=== PATIENT | male | born 1970 | race Caucasian/White ===

== ENCOUNTER → 2020-01-22 | Outpatient (CLI) | payer OTHER | LOC: M PAIN 13:21 | PROVIDERS: ATTEND Nurse Practitioner Family | DX: M46.1 Sacroiliitis, not elsewhere classified (principal) ==

== ENCOUNTER → 2020-01-30 | Outpatient (CLI) | payer OTHER | LOC: M LABSMTC 08:32 | PROVIDERS: ATTEND Anesthesiology | DX: Z20.828 Contact with and (suspected) exposure to other viral communicable diseases (principal) ==

== ENCOUNTER → 2020-02-04 | Outpatient (CLI) | payer OTHER ==
[~2020-02-04] MED LIST: BUPIVACAINE HCL 0.25% 30ML VIAL As Ordered ONE; ISOVUE-M 300 61% 15ML VIAL As Ordered ONE; LIDOCAINE 1% SDV 30ML VIAL As Ordered ONE; TRIAMCINOLONE ACETONIDE SUSP 40 MG/ML VIAL (J3301) As Ordered ONE; diazePAM 5 MG TAB As Ordered ONE; oxyCODONE 5MG TAB As Ordered ONE
--- NOTE | 2020-02-18 09:57 | REP ---
FLUORO GUIDED NEEDLE PLACEMENT: The images were reviewed with Dr. Estrada. The patient has a history of pain. The portable C-ARM was provided in the OR for Dr. Jeimy Hilario for fluoroscopic guidance. One intraoperative last image hold fluoro spot film was obtained for needle placement verification for left SI joint injection. The film is on the [employer] system and is available for review. 14.6 seconds of fluoroscopy time was utilized for this procedure. CIRILO
== END ==
LOC: M PAIN 09:53
PROVIDERS: ATTEND Anesthesiology
DX: M46.1 Sacroiliitis, not elsewhere classified (principal)

== ENCOUNTER → 2020-08-05 | Outpatient (CLI) | payer OTHER ==
--- NOTE | 2020-08-09 03:00 | ECWPNPC ---
PATIENT NAME: HUMPHREY ELISE : 1970 GENDER: MALE VISIT DATE: 08/05/2020 DISCHARGE DATE: 08/05/20 1359 VISIT LOCKED DATE TIME: PHYSICIAN: DEJUAN SIERRA RESOURCE: DEJUAN SIERRA REASON FOR APPOINTMENT 1. [facility] LAST / REFERRED FOR LUMBAR/FACET INJECTION HISTORY OF PRESENT ILLNESS DEPRESSION SCREENING: PHQ-2 (2015 EDITION) LITTLE INTEREST OR PLEASURE IN DOING THINGS?NOT AT ALL FEELING DOWN, DEPRESSED, OR HOPELESS?NOT AT ALL TOTAL SCORE0 GENERAL: PATIENT IS HERE TODAY FOR FOLLOW-UP OF LOW BACK PAIN WITH HISTORY OF POSTLAMINECTOMY PAIN SYNDROME. STATES LEFT SACROILIAC JOINT BLOCK WAS HELPFUL FOR APPROXIMATELY 6-8 WEEKS POST PROCEDURE. PATIENT STATES HE'S EXPERIENCING SIGNIFICANT INCREASE IN LOW BACK PAIN WITH RADIATION INTO BILATERAL LEGS RIGHT GREATER THAN LEFT OVER THE PAST 2 MONTHS. REVIEWED MRI OF THE LS-SPINE. DISCUSSED TREATMENT OPTIONS. DENIES BOWEL OR BLADDER INCONTINENCE. DENIES SADDLE PARESTHESIAS. DENIES INJURY.-. FALL RISK SCREENING: SCREENING : NO FALLS REPORTED IN THE LAST YEAR. PAIN SCREENING: PATIENT HAS A COMPLAINT OF ACUTE OR CHRONIC PAIN :YES LOCATION OF PAIN:LOW BACK INTENSITY OF PAIN (SCALE OF 1 TO 10):6 WHAT DOES YOUR PAIN FEEL LIKE:BURNING DURATION:CONTINOUS, CONSTANT, ALL DAY PAIN IS INCREASED BY:ACTIVITIES PAIN IS DECREASED BY:OTHERS LAYING DOWN NURSING NOTE: -. PAIN CENTER INTAKE QUESTIONS: DO YOU HAVE A HISTORY OF MRSA? :NO DO YOU TAKE A BLOOD THINNERS? :NO DO YOU HAVE ANY BLEEDING DISORDERS? :NO ANY NEW NUMBNESS OR WEAKNESS IN YOUR LEGS OR ARMS? :YES NUMBESS IN BOTH LEG GOES INTO TOES ANY PACEMAKER,DEFIBRILLATOR, OR DORSAL COLUMN STIMULATOR? :NO DO YOU HAVE ANY RASHES OR OPEN SORES? :NO ARE YOU ALLERGIC TO IV DYE? :NO ARE YOU DIABETIC? :YES ANY NEW PROBLEMS WITH YOUR MEDICATIONS? :NO HAVE YOU RECEIVED A VACCINE IN THE PAST 30 DAYS? :NO DO YOU PLAN TO RECEIVE A VACCINE IN THE NEXT 21 DAYS? :NO DO YOU NEED ANY PRESCRIPTION? :NO DO YOU TAKE ANY IMMUNOSUPPRESSIVE MEDICATIONS? :NO DO YOU HAVE ANY KIDNEY OR LIVER DISEASE? :NO IS THERE A CHANCE YOU COULD BE ? :NO ARE YOU BREAST FEEDING? :NO CURRENT MEDICATIONS TAKING CYCLOBENZAPRINE HCL 10 MG TABLET 1 TABLET AT BEDTIME NEEDED ORALLY ONCE A DAY TAKING ESCITALOPRAM OXALATE 20 MG TABLET 1 TABLET ORALLY ONCE A DAY TAKING GABAPENTIN 600 MG TABLET 1 TABLET ORALLY ONCE A DAY TAKING LOSARTAN POTASSIUM 100 MG TABLET 1 TABLET ORALLY ONCE A DAY TAKING TRULICITY 1.5 MG/0.5ML SOLUTION PEN-INJECTOR DIRECTED SUBCUTANEOUS , NOTES: 3X TIMES DAY NOT-TAKING CHLORTHALIDONE 25 MG TABLET 1 TABLET IN THE MORNING WITH FOOD ORALLY ONCE A DAY NOT-TAKING NAPROXEN SODIUM 220 MG TABLET 1 TABLET WITH FOOD OR MILK NEEDED ORALLY EVERY 12 HRS MEDICATION LIST REVIEWED AND RECONCILED WITH THE PATIENT PAST MEDICAL HISTORY ARTHRITIS LOW BACK STRAIN TYPE 2 DIABETES MELLITUS ESSENTIAL HYPERTENSION PURE HYPERCHOLESTEROLEMIA ALLERGIES NKDA NKFA NKEA FAMILY HISTORY SIBLINGS: ALIVE, DIAGNOSED WITH HYPERTENSION, DIABETES SOCIAL HISTORY GENERAL: TOBACCO USE ARE YOU A:CURRENT SMOKER ARE YOU INTERESTED IN QUITTING?NOT READY TO QUIT PATIENT COUNSELED ON THE DANGERS OF TOBACCO USE AND URGED TO QUIT:08/05/2020 LATEX QUESTIONNAIRE LATEX ALLERGY : HAVE YOU EVER DEVELOPED ANY TYPE OF REACTION AFTER HANDLING LATEX PRODUCTS SUCH RUBBER GLOVES, CONDOMS, DIAPHRAGMS, BALLOONS, SOCKS, OR UNDERWEAR?NO LATEX ALLERGY : HAVE YOU EVER DEVELOPED ANY TYPE OF REACTION DURING OR AFTER DENTAL APPOINTMENT, VAGINAL/RECTAL EXAMINATION, SURGICAL PROCEDURE, OR ANY OTHER EXPOSURE?NO LATEX RISK : HAVE YOU EVER HAD ANY DIFFICULTY BREATHING OR HIVES AFTER EATING OR HANDLING ANY FRUITS, OR VEGETABLES; SUCH KIWI, BANANAS, STONE FRUITS, OR CHESTNUTSNO LATEX RISK : DO YOU HAVE A PREVIOUS PERSONAL HISTORY OF MORE THAN NINE SURGERIES, SPINA BIFIDA, OR REPEATED CATHERIZATIONS? NO LATEX RISK : ARE YOU FREQUENTLY EXPOSED TO LATEX PRODUCTS IN YOUR OCCUPATION?NO DATE ASKED : 08/05/2020 RECREATIONAL DRUG USE DRUG USE?NO LANGUAGE LANGUAGES SPOKEN:TAMAZIGHT LEARNING BARRIERS / SPECIAL NEEDS CHANGE FROM LAST VISIT?YES BARRIERS TO LEARNING?NO HEARING IMPAIRED?NO VISION IMPAIRED?YES :CORRECTIVE LENSES COGNITIVELY IMPAIRED?NO READINESS TO LEARN?YES LEARNING PREFERENCES?NO LEARNING CAPABILITIES PRESENT?YES EMOTIONAL BARRIERS?NO SPECIAL DEVICES?NO SWITCH MAKER NEEDED?NO DOMESTIC VIOLENCE DO YOU FEEL SAFE IN YOUR ENVIRONMENT?YES REVIEW OF SYSTEMS CONSTITUTIONAL: ANY RECENT FEVER NO . CHILLS NO . WEIGHT CHANGE OF UNKNOWN REASONS NO . GASTROENTEROLOGY: NEW UNEXPLAINABLE CHANGES IN BOWEL CONTROL NO . CONSTIPATION NO . GENITOURINARY: ANY NEW CHANGE IN BLADDER CONTROL? NO . NEUROLOGY: NEW ONSET DIZZINESS OR NEUROLOGICAL CHANGES NOT MENTIONED NO . NEW NUMBNESS OR PAIN PATTERNS NOT MENTIONED AND PERTINENT TO TODAY'S VISIT NO . CARDIOLOGY: NEW CHEST PRESSURE NO . PATIENT DENIES NO . RESPIRATORY: UNEXPLAINABLE COUGH NO . NEW SHORTNESS OF BREATH NO . VITAL SIGNS WT 242 LBS, HT 6'0, BMI 32.82 INDEX, BP 131/80 MM HG, HR 91 /MIN, RR 18 /MIN, TEMP 92.7 F, OXYGEN SAT % 96%, SAFE IN ENV? (Y/N) YEST.CHILANGO RODRÍGUEZ. EXAMINATION GENERAL EXAMINATION: GENERAL AWAKE,ALERT ,PLEASANT . PSYCH AFFECT NORMAL . LUNGS: LUNG WILLS ARE CLEAR TO AUSCULTATION BILATERALLY. GOOD MOVEMENT OF AIR . HEART: S1, S2 IN A REGULAR RATE AND RHYTHM. NO SIGNIFICANT MURMURS, RUBS OR GALLOPS NOTED . LUMBAR: PALPATION: + FOR PAIN OVER L/S SPINE. + FOR PAIN OVER L/S PARASPINALS SLE: POSITIVE OVER LEFT AND RIGHT LEG AT 45 DEGREES. DIAGNOSTIC TESTS REVIEWED MRI L/S SPINE 2019. 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) TREATMENT POST LAMINECTOMY SYNDROME MEDICATION: VALIUM TAB 10MG ORALLY (DIAZEPAM) (ORDERED FOR 08/12/2020) MEDICATION: OXYCODONE HCL TAB 10MG ORALLY (ORDERED FOR 08/12/2020) NOTES: ISTOP REGISTRY REVIEWED AND DEMONSTRATES COMPLLIANCE. [facility] NARCOTIC AGREEMENT WAS REVIEWED AND SIGNED TODAY BY THE PATIENT. SEE ATTACHED DOCUMENT FOR FULL DETAILS; SPECIFIC ISSUES WERE REVIEWED: 1) KEEP PAIN MEDS IN THEIR ORIGINAL BOTTLES AND ANY WEEKLY PLANNERS ARE TO BE BROUGHT TO THE PAIN CENTER AT EVERY VISIT. 2) THE PATIENT IS NOT TO INCREASE DOSING OR TIMING OF THEIR PAIN MEDICATION WITHOUT SPECIFIC DIRECTION OF THEIR PAIN CENTERPROVIDER (NOT ER OR OTHER PROVIDERS). 3) ALL PAIN MEDS ARE TO BE KEPT SECURED, IN A LOCKED BOX. 4) NO PAIN MEDS ARE TO BE SHARED WITH ANY OTHER PERSON FOR ANY REASON. 5) NO PAIN MEDS MAY BE TAKEN FROM ANY FRIENDS OR RELATIVES FOR ANY REASON 6) NO MEDS OR SUBSTANCES WHICH ARE NOT LEGAL ARE TO BE USED- NO MARIJUANA, NO COCAINE, AMPHETAMINES, HEROIN, OR OTHERS ARE EVER TO BE USED. 7)URINE TESTING IS DONE TO ACCOUNT FOR MEDS AND SUBSTANCES BEING TAKEN AND WILL BE DONE RANDOMLY. , RISKS OF NARCOTIC/OPIOD MEDICATIONS INCLUDES BUT IS NOT LIMITED TO RISK OF DEPENDANCE/DEVELOPMENT OF ADDICTION, MOOD DISTURBANCE AND DEPRESSION, OSTEOPOROSIS, HORMONAL AND LABIDAL CHANGES, RESPIRATORY DEPRESSION AND . PATIENT IS ADVISED NOT TO DRIVE OR DRINK ALCOHOL WHILE ON THESE MEDICATIONS. OTHERS START GABAPENTIN CAPSULE, 300 MG, 1 CAPSULE, ORALLY, 3X DAILY, 30 DAY(S), 90, REFILLS 2 START PERCOCET TABLET, 10-325 MG, 1 TABLET NEEDED, ORALLY, AT NIGHT PRN FOR SEVERE PAIN MDD1, 30 DAYS, 30 NOTES: CAUDAL EPIDURAL STEROID INJECTION. PROCEDURE CODES FA211 ESTABILISHED PATIENT [facility] CHARGE DISPOSITION & COMMUNICATION FOLLOW UP POST PROCEDURE (REASON: CAUDAL EPIDURAL STEROID INJECTION) ELECTRONICALLY SIGNED BY ART LINDSAY ON 08/08/2020 AT 08:42 AM EDT DISCLAIMER : THIS IS A VISIT SUMMARY EXTRACTED FROM THE [employer] CHART. IT IS NOT A COPY OF THE [employer] PROGRESS NOTE. CIRILO
== END ==
LOC: M PAIN 13:00
PROVIDERS: ATTEND Nurse Practitioner Family
DX: M96.1 Postlaminectomy syndrome, not elsewhere classified (principal); E11.9 Type 2 diabetes mellitus without complications; F17.200 Nicotine dependence, unspecified, uncomplicated; Z79.899 Other long term (current) drug therapy

== ENCOUNTER → 2020-08-12 | Outpatient (CLI) | payer OTHER | LOC: M LABSMTC 14:21 | PROVIDERS: ATTEND Anesthesiology | DX: Z20.822 Contact with and (suspected) exposure to COVID-19 (principal) ==

== ENCOUNTER → 2020-08-17 | Outpatient (CLI) | payer OTHER ==
[~2020-08-17] MED LIST changes: -BUPIVACAINE HCL 0.25% 30ML VIAL As Ordered ONE; -TRIAMCINOLONE ACETONIDE SUSP 40 MG/ML VIAL (J3301) As Ordered ONE; -diazePAM 5 MG TAB As Ordered ONE; +diazePAM 5MG TABLET As Ordered ONE; +methylPREDNISolone SUSP 40MG/ML 1ML VIAL (DEPO MEDROL) As Ordered ONE
--- NOTE | 2020-08-17 17:26 | REP ---
INDICATION: CAUDAL EPIDURAL STEROID INJECTION. COMPARISON: None. TECHNIQUE: Multiple C-arm views sacrum and coccyx. FINDINGS: Needle is seen posteriorly in the sacrococcygeal region. A small amount of contrast is injected. IMPRESSION: 14 seconds fluoroscopy time utilized. <Electronically signed by Gilson Chu > 08/17/20 2019
--- NOTE | 2020-08-19 00:01 | ECWPNPC ---
PATIENT NAME: HUMPHREY ELISE : 1970 GENDER: MALE VISIT DATE: 08/17/2020 DISCHARGE DATE: 08/17/20 1256 VISIT LOCKED DATE TIME: PHYSICIAN: YAN ANTONIO MD RESOURCE: YAN ANTONIO MD REASON FOR APPOINTMENT 1. CAUDAL EPIDURAL STEROID INJECTION HISTORY OF PRESENT ILLNESS GENERAL: -. FALL RISK SCREENING: SCREENING : NO FALLS REPORTED IN THE LAST YEAR. PAIN SCREENING: PATIENT HAS A COMPLAINT OF ACUTE OR CHRONIC PAIN :YES LOCATION OF PAIN:LOW BACK, LEFT HIP, RIGHT HIP, LEG(S) INTENSITY OF PAIN (SCALE OF 1 TO 10):9 WHAT DOES YOUR PAIN FEEL LIKE: "JABBING, SHARP" DURATION:CONSTANT, AWAKENS FROM SLEEP PAIN IS INCREASED BY:ACTIVITIES, PROLONGED STANDING PAIN IS DECREASED BY:USE OF PAIN MEDICATIONS, OTHERS LAYING DOWN TREATMENT/MEDICATIONS USED TO MANAGE PAIN:OPIOIDS PLAN/GOALS/TREATMENT/INTERVENTION/FOLLOW UP:SEE PLAN NURSING NOTE: - -. PAIN CENTER INTAKE QUESTIONS: DO YOU HAVE A HISTORY OF MRSA? :NO DO YOU TAKE A BLOOD THINNERS? :NO DO YOU HAVE ANY BLEEDING DISORDERS? :NO ANY NEW NUMBNESS OR WEAKNESS IN YOUR LEGS OR ARMS? :YES NUMBESS IN BOTH LEG GOES INTO TOES ANY PACEMAKER,DEFIBRILLATOR, OR DORSAL COLUMN STIMULATOR? :NO DO YOU HAVE ANY RASHES OR OPEN SORES? :NO ARE YOU ALLERGIC TO IV DYE? :NO ARE YOU DIABETIC? :YES FSBS 89 ANY NEW PROBLEMS WITH YOUR MEDICATIONS? :NO HAVE YOU RECEIVED A VACCINE IN THE PAST 30 DAYS? :NO DO YOU PLAN TO RECEIVE A VACCINE IN THE NEXT 21 DAYS? :NO DO YOU TAKE ANY IMMUNOSUPPRESSIVE MEDICATIONS? :NO ANY HISTORY OF SEIZURES? :NO ANY HISTORY OF CARDIAC ISSUES OR EVENTS? :NO DO YOU HAVE ANY KIDNEY OR LIVER DISEASE? :NO DO YOU HAVE SLEEP APNEA? :YES DO YOU WEAR A CPAP?NO ANY RECENT HEAD INJURY? :NO DO YOU HAVE ANY NEW INFECTIONS? :NO IS THERE A CHANCE YOU COULD BE ? :N/A ARE YOU BREAST FEEDING? :N/A WHEN DID YOU LAST EAT? : 08/16/2020 1930 WHEN DID YOU LAST DRINK? : 08/17/2020 0730 WHAT DID YOU LAST DRINK? : BETSY NAME OF PERSON DRIVING YOU HOME? : GABRIELA DO YOU HAVE ANY OTHER QUESTIONS OR CONCERNS? : NO CURRENT MEDICATIONS TAKING CYCLOBENZAPRINE HCL 10 MG TABLET 1 TABLET AT BEDTIME NEEDED ORALLY ONCE A DAY TAKING ESCITALOPRAM OXALATE 20 MG TABLET 1 TABLET ORALLY ONCE A DAY TAKING GABAPENTIN 600 MG TABLET 1 TABLET ORALLY ONCE A DAY, NOTES: 08/17/2020 0730 TAKING TRULICITY 1.5 MG/0.5ML SOLUTION PEN-INJECTOR DIRECTED SUBCUTANEOUS ONCE A WEEK TAKING GABAPENTIN 300 MG CAPSULE 1 CAPSULE ORALLY 3X DAILY TAKING PERCOCET 10-325 MG TABLET 1 TABLET NEEDED ORALLY AT NIGHT PRN FOR SEVERE PAIN MDD1 NOT-TAKING CHLORTHALIDONE 25 MG TABLET 1 TABLET IN THE MORNING WITH FOOD ORALLY ONCE A DAY NOT-TAKING NAPROXEN SODIUM 220 MG TABLET 1 TABLET WITH FOOD OR MILK NEEDED ORALLY EVERY 12 HRS NOT-TAKING LOSARTAN POTASSIUM 100 MG TABLET 1 TABLET ORALLY ONCE A DAY MEDICATION LIST REVIEWED AND RECONCILED WITH THE PATIENT PAST MEDICAL HISTORY ARTHRITIS LOW BACK STRAIN TYPE 2 DIABETES MELLITUS ESSENTIAL HYPERTENSION PURE HYPERCHOLESTEROLEMIA ALLERGIES NKDA NKFA NKEA SOCIAL HISTORY GENERAL: TOBACCO USE ARE YOU A:CURRENT SMOKER ARE YOU INTERESTED IN QUITTING?NOT READY TO QUIT PATIENT COUNSELED ON THE DANGERS OF TOBACCO USE AND URGED TO QUIT:08/16/2020 VAPORNO E-CIGARETTENO LATEX QUESTIONNAIRE LATEX ALLERGY : HAVE YOU EVER DEVELOPED ANY TYPE OF REACTION AFTER HANDLING LATEX PRODUCTS SUCH RUBBER GLOVES, CONDOMS, DIAPHRAGMS, BALLOONS, SOCKS, OR UNDERWEAR?NO LATEX ALLERGY : HAVE YOU EVER DEVELOPED ANY TYPE OF REACTION DURING OR AFTER DENTAL APPOINTMENT, VAGINAL/RECTAL EXAMINATION, SURGICAL PROCEDURE, OR ANY OTHER EXPOSURE?NO LATEX RISK : HAVE YOU EVER HAD ANY DIFFICULTY BREATHING OR HIVES AFTER EATING OR HANDLING ANY FRUITS, OR VEGETABLES; SUCH KIWI, BANANAS, STONE FRUITS, OR CHESTNUTSNO LATEX RISK : DO YOU HAVE A PREVIOUS PERSONAL HISTORY OF MORE THAN NINE SURGERIES, SPINA BIFIDA, OR REPEATED CATHERIZATIONS? NO LATEX RISK : ARE YOU FREQUENTLY EXPOSED TO LATEX PRODUCTS IN YOUR OCCUPATION?NO DATE ASKED : 08/16/2020 ALCOHOL USE: ORLANDO CHAPA 08/16/2020 4:13:47 PM > , YES ONCE IN A GREAT GREAT WHILE.. RECREATIONAL DRUG USE DRUG USE?NO LANGUAGE LANGUAGES SPOKEN:ICELANDIC LEARNING BARRIERS / SPECIAL NEEDS CHANGE FROM LAST VISIT?YES BARRIERS TO LEARNING?NO HEARING IMPAIRED?NO VISION IMPAIRED?YES :CORRECTIVE LENSES COGNITIVELY IMPAIRED?NO READINESS TO LEARN?YES LEARNING PREFERENCES?NO LEARNING CAPABILITIES PRESENT?YES EMOTIONAL BARRIERS?NO SPECIAL DEVICES?NO CHURCH BUSINESS ADMINISTRATOR NEEDED?NO DOMESTIC VIOLENCE DO YOU FEEL SAFE IN YOUR ENVIRONMENT?YES OCCUPATION: [employer]. VITAL SIGNS WT 241.6 LBS, HT 6'0, BMI 32.76 INDEX, BP 140/81 MM HG, HR 87 /MIN, RR 18 /MIN, TEMP 95.3 F, OXYGEN SAT % 96%, BLOOD GLUCOSE LEVEL 89, SAFE IN ENV? (Y/N) YES, NA INITIALS CT 11:23, REVIEWED BY: Jason KONG RN. EXAMINATION GENERAL EXAMINATION: A HISTORY AND PHYSICAL EXAM ON THE PATIENT WAS DONE ON 08/05/2020 (DATE OF ORIGINAL ASSESSMENT) IN PREPARATION OF SURGERY/PROCEDURE. I HAVE NOW REASSESSED THIS PATIENT'S HEALTH STATUS AND PERFORMED AN UPDATED EXAM TODAY. ALL CHANGES IN THE PATIENT'S HISTORY, PHYSICAL EXAM, PRE-EXISTING CONDITONS, AND INDICATIONS/CONTRAINDICATIONS TO THE PLANNED PROCEDURE AND ANESTHESIA ARE DOCUMENTED AND EVALUATED BELOW. I ATTEST TO THE ADEQUACY AND APPROPRIATENESS OF MY ASSESSMENT, AND CONFIRM THE NECESSITY FOR THE PLANNED PROCEDURE. THE PATIENT IS ALERT, ORIENTED TIMES THREE AND COOPERATIVE. LUNGS ARE CLEAR TO AUSCULTATION. HEART SHOWS REGULAR RHYTHM, NO MURMURS AND NO GALLOPS. 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) TREATMENT POST LAMINECTOMY SYNDROME [facility] FLUORO GUIDE SPINE INJECTION (PAIN)[id number] SALINE CHITRA [place] 08/17/2020 11:52:21 AM > #22 SL STARTED X 2 ND ATTEMPT BY THIS LASER OPERATOR IN RIGHT HAND. SITE ASYMPTOMATIC, FLUSHES WELL. PATIENT TOLERATED WELL COMPLETION OF PROCEDURAL VISIT WHEN MEETS CRITERIACHITRA DESIR 08/17/2020 12:59:50 PM > 1257 CRITERIS MET MEDICATION: VALIUM TAB 10MG ORALLY (DIAZEPAM)JESS EDUARDO 08/17/2020 11:38:55 AM > VERIFIED CHITRA DESIR 08/17/2020 11:40:57 AM > ADMINISTERED MEDICATION: OXYCODONE HCL TAB 10MG ORALLYJESS EDUARDO 08/17/2020 11:33:46 AM > VERIFIED CHITRA DESIR 08/17/2020 11:41:13 AM > ADMINISTERED OTHERS NOTES: 08/16/20 1624 PAT COMPLETED.Doug CHAPA RN BSN. PROCEDURES PAIN NURSING RECORD PROCEDURE IN ROOM 1205, PHYSICIAN IN ROOM 1218, START 1225, FINISH 1231, PHYSICIAN OUT OF ROOM 1234, OUT OF ROOM 1239, ECG NORMAL SINUS, PATIENT SHIELDED YES, SAFETY STRAP YES, PREP BETADINE Stephanie KONG RN, DRESSING TEGADERM DR. ANTONIO LOC: CHITRA DESIR 08/17/2020 12:17:00 PM > , 1. ALERT, ORIENTED RESP: CHITRA DESIR 08/17/2020 12:17:03 PM > , 1. REGULAR, NO DYSPNEA COLOR: CHITRA DESIR 08/17/2020 12:17:07 PM > , 1. PINK SKIN: CHITRA DESIR 08/17/2020 12:17:10 PM > , 1. WARM, DRY POSITION: CHITRA DESIR 08/17/2020 12:17:14 PM > , 1. PRONE VITALS: CHITRA DESIR 08/17/2020 12:17:19 PM > 148/88-79-18-94% , CHITRA DESIR 08/17/2020 12:27:21 PM > 137/77-77-18-92% 08/17/2020 1245> 141/86-77-18-94% NOTES Stephanie KONG RN COMPLETION OF PROCEDURE APPOINTMENT: POST PAIN 3 RIGHT LOWER BACK, DRESSING SITE DRY AND INTACT BILATERAL LOWER BACK, IV DISCONTINUED, SITE CLEAR, CATHETER INTACT DRY STERILE 2 X 2 APPLIED WITH PAPER TAPE TO SITE, GAIT STEADY, TEACHING COMPLETED, PATIENT ACKNOWLEDGES UNDERSTANDING YES PATIENT VERBALIZES UNDERSTANDING OF POST PROCEDURE INSTRUCTIONS REVIEWED, PROCEDURE APPOINTMENT COMPLETED AT 1257 BY: Stephanie KONG RN PN CAUDAL EPIDURALS PRE PROCEDURE DIAGNOSIS LUMBAR POST LAMINECTOMY PAIN SYNDROME POST PROCEDURE DIAGNOSIS LUMBAR POST LAMINECTOMY PAIN SYNDROME PROCEDURE CAUDAL EPIDURAL STEROID INJECTION SURGEON DR. YAN NATONIO DIRECTOR OF USER EXPERIENCE NONE ANESTHESIA LOCAL PRE PROCEDURE NOTE THE PATIENT HAS HISTORY OF CHRONIC LOW BACK PAIN. I EVALUATED THE PATIENT AND REVIEWED THE CHART. I WENT OVER THE RISKS, ALTERNATIVES, AND BENEFITS ASSOCIATED WITH THIS PROCEDURE. THE PATIENT WOULD LIKE TO PROCEED AND GIVE CONSENT TO PERFORMED THE PROCEDURE. THE PATIENT DENIES UNEXPLAINABLE WEIGHT LOSS, FEVER, CHILLS, OR NEW CHANGES IN URINARY OR BOWEL CONTROL. THE PATIENT IS COVID-19 NEGATIVE DESCRIPTION OF PROCEDURE THE PATIENT WAS BROUGHT TO THE PROCEDURE ROOM AND PLACED IN THE PRONE POSITION. THE LUMBOSACRAL AREA WAS CLEANED WITH BETADINE SOLUTION AND DRAPED ASEPTICALLY. THE PROCEDURE WAS DONE UNDER STERILE CONDITIONS. A TIMEOUT WAS PERFORMED WHERE THE CONSENTED SITE WAS VERIFIED WITH EVERYONE IN THE ROOM. UNDER FLUOROSCOPIC GUIDANCE, THE TARGET POINT WAS SELECTED AT THE EPIDURAL SPACE BELOW THE SACROCOCCYGEAL LIGAMENT. I CONFIRMED AGAIN THE SITE OF TARGET. LIDOCAINE 0.5% WAS USE TO NUMB THE SKIN AND THE SUBCUTANEOUS TISSUE BELOW IT. SPINAL NEEDLE, 22-GAUGE 3.5 INCH, WAS ADVANCED UNDER FLUOROSCOPIC GUIDANCE AND FOLLOWING PATIENT FEEDBACK UNTIL THE EPIDURAL SPACE WAS REACHED BY THE LOSS OF RESISTANCE TECHNIQUE. ISOVUE M DYE 30%, 0.25 ML, WAS INJECTED SHOWING ADEQUATE SPREAD OF THE DYE. THEN, A SOLUTION OF 6 ML OF NORMAL SALINE WITH DEPO-MEDROL 40 MG WAS INJECTED SLOWLY FOLLOWING THE PATIENT FEEDBACK. THERE WAS NO EVIDENCE OF BLOOD, PARESTHESIA OR CEREBROSPINAL FLUID DURING THE PROCEDURE. THE PATIENT WAS SENT TO THE RECOVERY ROOM. THE PATIENT WAS MOVING THE EXTREMITIES AND DOING WELL. THERE WAS NO COMPLICATION DURING THE PROCEDURE. ESTIMATED BLOOD LOSS LESS THAN 5 ML. FLUOROSCOPY TIME WAS 13 SECONDS POST PROCEDURE NOTE DEPENDING ON THE RESULTS, CONSIDER A RIGHT TRANSFORAMINAL EPIDURAL STEROID INJECTION L4-L5, L5-S1. THE PATIENT WILL BE SEEN IN A FOLLOW UP IN THE NEXT FEW WEEKS. I AM LOOKING FOR LONG LASTING RELIEF FOR THE PATIENT WITH THIS INTERVENTION. INSTRUCTIONS WERE GIVEN, QUESTIONS WERE ANSWERED, AND THE PATIENT EXPRESSED UNDERSTANDING AND AGREES WITH THE PLAN. I, WINSOME PEMBERTON, DOCUMENTED THE ABOVE INFORMATION ACTING A SCRIBE FOR DR. ANTONIO. I HAVE REVIEWED THE ABOVE DOCUMENT, WRITTEN BY WINSOME PEMBERTON, PHYSICAL AERODYNAMICIST, AND I VERIFY THAT IT IS ACCURATE PROCEDURE CODES 33710 LUMBAR/SACRAL W/ IMAGING DISPOSITION & COMMUNICATION FOLLOW UP FOLLOW UP WITH HOST AND HOSTESS (REASON: POST CAUDAL EPIDURAL STEROID INJECTION ) ELECTRONICALLY SIGNED BY YAN ANTONIO MD, MD ON 08/18/2020 AT 01:49 PM EDT DISCLAIMER : THIS IS A VISIT SUMMARY EXTRACTED FROM THE [employer] CHART. IT IS NOT A COPY OF THE [employer] PROGRESS NOTE. CIRILO
== END ==
LOC: M PAIN 11:00
PROVIDERS: ATTEND Anesthesiology
DX: M96.1 Postlaminectomy syndrome, not elsewhere classified (principal); E11.9 Type 2 diabetes mellitus without complications; G47.30 Sleep apnea, unspecified; F17.200 Nicotine dependence, unspecified, uncomplicated; Z79.899 Other long term (current) drug therapy
CPT/HCPCS: 62323; J1030; Q9967

== ENCOUNTER → 2020-08-31 | Outpatient (CLI) | payer OTHER ==
--- NOTE | 2020-09-02 01:36 | ECWPNPC ---
PATIENT NAME: HUMPHREY ELISE : 1970 GENDER: MALE VISIT DATE: 08/31/2020 DISCHARGE DATE: 08/31/20 1525 VISIT LOCKED DATE TIME: PHYSICIAN: DEJUAN SIERRA RESOURCE: DEJUAN SIERRA REASON FOR APPOINTMENT 1. POST CAUDAL EPIDURAL STEROID INJECTION HISTORY OF PRESENT ILLNESS GENERAL: HERE FOR POST PROCEDURE FOLLOW-UP. HAD CAUDAL EPIDURAL STEROID INJECTION AT HIS LAST VISIT. REPORTING MARKED REDUCTION IN LOW BACK PAIN AND RIGHT LEG PAIN. CHIEF COMPLAINT IS LEFT-SIDED LOW BACK, BUTTOCK AND LEG PAIN. REVIEWED MRI OF THE LS-SPINE. DISCUSSED TRANSFORAMINAL STEROID INJECTION. INCREASED RISKS WITH THIS APPROACH WERE REVIEWED. PATIENT WOULD LIKE TO PROCEED. FINDS CURRENT CHRONIC PAIN MEDICATION HELPFUL AT REDUCING HIS PAIN AND REPORTS MARKED IMPROVEMENT IN HIS SLEEP SINCE STARTING BOTH PERCOCET AND GABAPENTIN. DENIES ADVERSE SIDE EFFECTS WITH MEDICATION. -. FALL RISK SCREENING: SCREENING : NO FALLS REPORTED IN THE LAST YEAR. PAIN SCREENING: PATIENT HAS A COMPLAINT OF ACUTE OR CHRONIC PAIN :YES LOCATION OF PAIN:LOW BACK, LEG(S) INTENSITY OF PAIN (SCALE OF 1 TO 10):5 WHAT DOES YOUR PAIN FEEL LIKE:SHARP DURATION:CONTINOUS, CONSTANT, ALL DAY PAIN IS INCREASED BY:ACTIVITIES PAIN IS DECREASED BY:USE OF PAIN MEDICATIONS NURSING NOTE: -. PAIN CENTER INTAKE QUESTIONS: DO YOU HAVE A HISTORY OF MRSA? :NO DO YOU TAKE A BLOOD THINNERS? :NO DO YOU HAVE ANY BLEEDING DISORDERS? :NO ANY NEW NUMBNESS OR WEAKNESS IN YOUR LEGS OR ARMS? :YES NUMBESS IN BOTH LEG GOES INTO TOES ANY PACEMAKER,DEFIBRILLATOR, OR DORSAL COLUMN STIMULATOR? :NO DO YOU HAVE ANY RASHES OR OPEN SORES? :NO ARE YOU ALLERGIC TO IV DYE? :NO ARE YOU DIABETIC? :YES ANY NEW PROBLEMS WITH YOUR MEDICATIONS? :NO HAVE YOU RECEIVED A VACCINE IN THE PAST 30 DAYS? :NO DO YOU PLAN TO RECEIVE A VACCINE IN THE NEXT 21 DAYS? :NO DO YOU NEED ANY PRESCRIPTION? :NO DO YOU TAKE ANY IMMUNOSUPPRESSIVE MEDICATIONS? :NO DO YOU HAVE ANY KIDNEY OR LIVER DISEASE? :NO IS THERE A CHANCE YOU COULD BE ? :NO ARE YOU BREAST FEEDING? :NO CURRENT MEDICATIONS TAKING CYCLOBENZAPRINE HCL 10 MG TABLET 1 TABLET AT BEDTIME NEEDED ORALLY ONCE A DAY TAKING ESCITALOPRAM OXALATE 20 MG TABLET 1 TABLET ORALLY ONCE A DAY TAKING TRULICITY 1.5 MG/0.5ML SOLUTION PEN-INJECTOR DIRECTED SUBCUTANEOUS ONCE A WEEK TAKING GABAPENTIN 300 MG CAPSULE 1 CAPSULE ORALLY 3X DAILY TAKING PERCOCET 10-325 MG TABLET 1 TABLET NEEDED ORALLY AT NIGHT PRN FOR SEVERE PAIN MDD1 NOT-TAKING CHLORTHALIDONE 25 MG TABLET 1 TABLET IN THE MORNING WITH FOOD ORALLY ONCE A DAY NOT-TAKING NAPROXEN SODIUM 220 MG TABLET 1 TABLET WITH FOOD OR MILK NEEDED ORALLY EVERY 12 HRS NOT-TAKING LOSARTAN POTASSIUM 100 MG TABLET 1 TABLET ORALLY ONCE A DAY NOT-TAKING GABAPENTIN 600 MG TABLET 1 TABLET ORALLY ONCE A DAY MEDICATION LIST REVIEWED AND RECONCILED WITH THE PATIENT PAST MEDICAL HISTORY ARTHRITIS LOW BACK STRAIN TYPE 2 DIABETES MELLITUS ESSENTIAL HYPERTENSION PURE HYPERCHOLESTEROLEMIA ALLERGIES NKDA NKFA NKEA SURGICAL HISTORY FALL SPRAIN RIGHT SHOULDER 08/2020 SOCIAL HISTORY GENERAL: TOBACCO USE ARE YOU A:CURRENT SMOKER ARE YOU INTERESTED IN QUITTING?NOT READY TO QUIT PATIENT COUNSELED ON THE DANGERS OF TOBACCO USE AND URGED TO QUIT:08/16/2020 VAPORNO E-CIGARETTENO LATEX QUESTIONNAIRE LATEX ALLERGY : HAVE YOU EVER DEVELOPED ANY TYPE OF REACTION AFTER HANDLING LATEX PRODUCTS SUCH RUBBER GLOVES, CONDOMS, DIAPHRAGMS, BALLOONS, SOCKS, OR UNDERWEAR?NO LATEX ALLERGY : HAVE YOU EVER DEVELOPED ANY TYPE OF REACTION DURING OR AFTER DENTAL APPOINTMENT, VAGINAL/RECTAL EXAMINATION, SURGICAL PROCEDURE, OR ANY OTHER EXPOSURE?NO LATEX RISK : HAVE YOU EVER HAD ANY DIFFICULTY BREATHING OR HIVES AFTER EATING OR HANDLING ANY FRUITS, OR VEGETABLES; SUCH KIWI, BANANAS, STONE FRUITS, OR CHESTNUTSNO LATEX RISK : DO YOU HAVE A PREVIOUS PERSONAL HISTORY OF MORE THAN NINE SURGERIES, SPINA BIFIDA, OR REPEATED CATHERIZATIONS? NO LATEX RISK : ARE YOU FREQUENTLY EXPOSED TO LATEX PRODUCTS IN YOUR OCCUPATION?NO DATE ASKED : 08/31/2020 ALCOHOL USE: YES ONCE IN A GREAT GREAT WHILE.. RECREATIONAL DRUG USE DRUG USE?NO LANGUAGE LANGUAGES SPOKEN:JORDANIAN LEARNING BARRIERS / SPECIAL NEEDS CHANGE FROM LAST VISIT?YES BARRIERS TO LEARNING?NO HEARING IMPAIRED?NO VISION IMPAIRED?YES :CORRECTIVE LENSES COGNITIVELY IMPAIRED?NO READINESS TO LEARN?YES LEARNING PREFERENCES?NO LEARNING CAPABILITIES PRESENT?YES EMOTIONAL BARRIERS?NO SPECIAL DEVICES?NO FINISH PHOTOGRAPHER NEEDED?NO DOMESTIC VIOLENCE DO YOU FEEL SAFE IN YOUR ENVIRONMENT?YES OCCUPATION: [employer]. REVIEW OF SYSTEMS CONSTITUTIONAL: ANY RECENT FEVER NO . CHILLS NO . WEIGHT CHANGE OF UNKNOWN REASONS NO . GASTROENTEROLOGY: NEW UNEXPLAINABLE CHANGES IN BOWEL CONTROL NO . CONSTIPATION NO . GENITOURINARY: ANY NEW CHANGE IN BLADDER CONTROL? NO . NEUROLOGY: NEW ONSET DIZZINESS OR NEUROLOGICAL CHANGES NOT MENTIONED NO . NEW NUMBNESS OR PAIN PATTERNS NOT MENTIONED AND PERTINENT TO TODAY'S VISIT NO . CARDIOLOGY: NEW CHEST PRESSURE NO . PATIENT DENIES NO . RESPIRATORY: UNEXPLAINABLE COUGH NO . NEW SHORTNESS OF BREATH NO . VITAL SIGNS WT 241.8 LBS, HT 6'0, BMI 32.79 INDEX, BP 147/83 MM HG, HR 66 /MIN, RR 18 /MIN, TEMP 97.6 F, OXYGEN SAT % 97%, SAFE IN ENV? (Y/N) YES, NA INITIALS SC 14:56T.CHILANGO RODRÍGUEZ. EXAMINATION GENERAL EXAMINATION: GENERAL AWAKE,ALERT ,PLEASANT . PSYCH AFFECT NORMAL . LUNGS: LUNG WILLS ARE CLEAR TO AUSCULTATION BILATERALLY. GOOD MOVEMENT OF AIR . HEART: S1, S2 IN A REGULAR RATE AND RHYTHM. NO SIGNIFICANT MURMURS, RUBS OR GALLOPS NOTED . LUMBAR:PALPATION: + FOR PAIN OVER L/S SPINE. + FOR PAIN OVER L/S PARASPINALS SLE: POSITIVE OVER LEFT LEG AT 45 DEGREES. DIAGNOSTIC TESTS REVIEWED MRI L/S SPINE 2019. 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) CHRONIC PRESCRIPTION OPIATE USE - Z79.891 OTHER CHRONIC PAIN - G89.29 TREATMENT POST LAMINECTOMY SYNDROME MEDICATION: VALIUM TAB 10MG ORALLY (DIAZEPAM) (ORDERED FOR 09/07/2020) MEDICATION: OXYCODONE HCL TAB 10MG ORALLY (ORDERED FOR 09/07/2020) NOTES: LEFT TRANSFORAMINAL EPIDURAL STERIOD INJECTION L3-4 PRINTED AND REVIEWED PRE PROCEDURE TEACHING, PATIENT VERBALIZED UNDERSTANDING SHANA UMANA CHRONIC PRESCRIPTION OPIATE USE LAB: URINE TEST GROUP IGNACIA KEE 08/31/2020 3:22:08 PM > LAST DOSE: GABAPENTIN 08/31/2020 @1PM, PERCOCET 08/30/2020 @6PM OTHER CHRONIC PAIN PAIN PROCEDURE LOGDATE OF PROCEDURE08/17/2020ROCEDURE:CAUDAL EPIDURAL STEROID INJECTIONAMOUNT OF PRE SEDATEVALIUM 10MG, OXYCODONE 10MGRESULT:MARKED IMPROVEMENT IN LOW BACK PAIN AND RIGHT LEG PAIN PROCEDURE CODES FA211 ESTABILISHED PATIENT [facility] CHARGE DISPOSITION & COMMUNICATION FOLLOW UP POST/REVIEW UTOX/PILL COUNT/ID (REASON: LEFT TRANSFORAMINAL EPIDURAL STERIOD INJECTION L3-4 ) ELECTRONICALLY SIGNED BY ART LINDSAY ON 09/01/2020 AT 03:02 PM EDT DISCLAIMER : THIS IS A VISIT SUMMARY EXTRACTED FROM THE [employer] CHART. IT IS NOT A COPY OF THE [employer] PROGRESS NOTE. VICKEYD
== END ==
LOC: M PAIN 14:45
PROVIDERS: ATTEND Nurse Practitioner Family
DX: M96.1 Postlaminectomy syndrome, not elsewhere classified (principal); E11.9 Type 2 diabetes mellitus without complications; F17.200 Nicotine dependence, unspecified, uncomplicated; Z79.899 Other long term (current) drug therapy

== ENCOUNTER → 2020-09-09 | Outpatient (CLI) | payer OTHER | LOC: M LABSMTC 13:57 | PROVIDERS: ATTEND Anesthesiology | DX: Z11.52 Encounter for screening for COVID-19 (principal) ==

== ENCOUNTER → 2020-09-14 | Outpatient (CLI) | payer OTHER ==
[~2020-09-14] MED LIST changes: +BUPIVACAINE HCL 0.25% 30ML VIAL As Ordered ONE; +dexameTHASONE 10MG/1ML VIAL PRES.FREE (J1100 PER 1MG) As Ordered ONE; -diazePAM 5MG TABLET As Ordered ONE; -methylPREDNISolone SUSP 40MG/ML 1ML VIAL (DEPO MEDROL) As Ordered ONE; -oxyCODONE 5MG TAB As Ordered ONE
--- NOTE | 2020-09-24 00:15 | ECWPNPC ---
PATIENT NAME: HUMPHREY ELISE : 1970 GENDER: MALE VISIT DATE: 09/14/2020 DISCHARGE DATE: 09/14/20 1406 VISIT LOCKED DATE TIME: PHYSICIAN: YAN ANTONIO MD RESOURCE: YAN ANTONIO MD REASON FOR APPOINTMENT 1. LOW BACK HISTORY OF PRESENT ILLNESS GENERAL: 50-YEAR-OLD MALE PATIENT WITH A HISTORY OF CHRONIC LOW BACK AND MAINLY LEFT LEG PAIN. THE PATIENT DESCRIBES THE PAIN ACHING, CONSTANT AND STEADY WITH A PAIN SCORE RANGING FROM 6-9/10 AT THE BACK WITH RADIATION TO THE LEFT LEG. THE PAIN GOES DOWN THE BUTTOCK AND BACK OF THE LEFT LEG. THE PATIENT HAS HAD A CAUDAL IN THE PAST THAT HELPED RELIEF HIS PAIN. HE IS HAVING DIFFICULTY WITH ACTIVITIES SUCH CLEANING HIS HOUSE AND MOVING AROUND. FALL RISK SCREENING: SCREENING FELL OFF LADDER AND SPRAINED SHOULDER ABOUT A MONTH AGO. PAIN SCREENING: PATIENT HAS A COMPLAINT OF ACUTE OR CHRONIC PAIN :YES LOCATION OF PAIN:LOW BACK INTENSITY OF PAIN (SCALE OF 1 TO 10):6 WHAT DOES YOUR PAIN FEEL LIKE:ACHING DURATION:CONTINOUS, CONSTANT, STEADY, ALL DAY PAIN IS INCREASED BY:ACTIVITIES PROLONGED SITTING PAIN IS DECREASED BY:OTHERS LAYING DOWN NURSING NOTE: -. PAIN CENTER INTAKE QUESTIONS: DO YOU HAVE A HISTORY OF MRSA? :NO DO YOU TAKE A BLOOD THINNERS? :NO DO YOU HAVE ANY BLEEDING DISORDERS? :NO ANY NEW NUMBNESS OR WEAKNESS IN YOUR LEGS OR ARMS? :NO ANY PACEMAKER,DEFIBRILLATOR, OR DORSAL COLUMN STIMULATOR? :NO DO YOU HAVE ANY RASHES OR OPEN SORES? :NO ARE YOU ALLERGIC TO IV DYE? :NO ARE YOU DIABETIC? :YES FSBS: 89 ANY NEW PROBLEMS WITH YOUR MEDICATIONS? :NO HAVE YOU RECEIVED A VACCINE IN THE PAST 30 DAYS? :NO DO YOU PLAN TO RECEIVE A VACCINE IN THE NEXT 21 DAYS? :NO DO YOU TAKE ANY IMMUNOSUPPRESSIVE MEDICATIONS? :NO ANY HISTORY OF SEIZURES? :NO ANY HISTORY OF CARDIAC ISSUES OR EVENTS? :NO DO YOU HAVE ANY KIDNEY OR LIVER DISEASE? :NO DO YOU HAVE SLEEP APNEA? :NO ANY RECENT HEAD INJURY? :NO DO YOU HAVE ANY NEW INFECTIONS? :NO IS THERE A CHANCE YOU COULD BE ? :NO ARE YOU BREAST FEEDING? :NO WHEN DID YOU LAST EAT? : 09/13/202029 WHEN DID YOU LAST DRINK? : 1300- DR. ANTONIO AWARE WHAT DID YOU LAST DRINK? : NAKITA AKERS NAME OF PERSON DRIVING YOU HOME? : GABRIELA-SON DO YOU HAVE ANY OTHER QUESTIONS OR CONCERNS? : - CURRENT MEDICATIONS TAKING CYCLOBENZAPRINE HCL 10 MG TABLET 1 TABLET AT BEDTIME NEEDED ORALLY ONCE A DAY TAKING TRULICITY 1.5 MG/0.5ML SOLUTION PEN-INJECTOR DIRECTED SUBCUTANEOUS ONCE A WEEK, NOTES: 09/10/20 TAKING GABAPENTIN 300 MG CAPSULE 1 CAPSULE ORALLY 3X DAILY TAKING PERCOCET 10-325 MG TABLET 1 TABLET NEEDED ORALLY AT NIGHT PRN FOR SEVERE PAIN MDD1, NOTES: 09/13/20 2100 NOT-TAKING CHLORTHALIDONE 25 MG TABLET 1 TABLET IN THE MORNING WITH FOOD ORALLY ONCE A DAY NOT-TAKING NAPROXEN SODIUM 220 MG TABLET 1 TABLET WITH FOOD OR MILK NEEDED ORALLY EVERY 12 HRS NOT-TAKING LOSARTAN POTASSIUM 100 MG TABLET 1 TABLET ORALLY ONCE A DAY NOT-TAKING GABAPENTIN 600 MG TABLET 1 TABLET ORALLY ONCE A DAY NOT-TAKING ESCITALOPRAM OXALATE 20 MG TABLET 1 TABLET ORALLY ONCE A DAY MEDICATION LIST REVIEWED AND RECONCILED WITH THE PATIENT PAST MEDICAL HISTORY ARTHRITIS LOW BACK STRAIN TYPE 2 DIABETES MELLITUS ESSENTIAL HYPERTENSION PURE HYPERCHOLESTEROLEMIA ALLERGIES NKDA NKFA NKEA SOCIAL HISTORY GENERAL: TOBACCO USE ARE YOU A:CURRENT SMOKER ARE YOU INTERESTED IN QUITTING?NOT READY TO QUIT PATIENT COUNSELED ON THE DANGERS OF TOBACCO USE AND URGED TO QUIT:09/14/2020 VAPORNO E-CIGARETTENO LATEX QUESTIONNAIRE LATEX ALLERGY : HAVE YOU EVER DEVELOPED ANY TYPE OF REACTION AFTER HANDLING LATEX PRODUCTS SUCH RUBBER GLOVES, CONDOMS, DIAPHRAGMS, BALLOONS, SOCKS, OR UNDERWEAR?NO LATEX ALLERGY : HAVE YOU EVER DEVELOPED ANY TYPE OF REACTION DURING OR AFTER DENTAL APPOINTMENT, VAGINAL/RECTAL EXAMINATION, SURGICAL PROCEDURE, OR ANY OTHER EXPOSURE?NO LATEX RISK : HAVE YOU EVER HAD ANY DIFFICULTY BREATHING OR HIVES AFTER EATING OR HANDLING ANY FRUITS, OR VEGETABLES; SUCH KIWI, BANANAS, STONE FRUITS, OR CHESTNUTSNO LATEX RISK : DO YOU HAVE A PREVIOUS PERSONAL HISTORY OF MORE THAN NINE SURGERIES, SPINA BIFIDA, OR REPEATED CATHERIZATIONS? NO LATEX RISK : ARE YOU FREQUENTLY EXPOSED TO LATEX PRODUCTS IN YOUR OCCUPATION?NO DATE ASKED : 08/31/2020 ALCOHOL USE: YES ONCE IN A GREAT GREAT WHILE.. RECREATIONAL DRUG USE DRUG USE?NO LANGUAGE LANGUAGES SPOKEN:UZBEK LEARNING BARRIERS / SPECIAL NEEDS CHANGE FROM LAST VISIT?NO BARRIERS TO LEARNING?NO HEARING IMPAIRED?NO VISION IMPAIRED?YES :CORRECTIVE LENSES COGNITIVELY IMPAIRED?NO READINESS TO LEARN?YES LEARNING PREFERENCES?NO LEARNING CAPABILITIES PRESENT?YES EMOTIONAL BARRIERS?NO SPECIAL DEVICES?NO FACULTY RESEARCH PHYSICIAN NEEDED?NO DOMESTIC VIOLENCE DO YOU FEEL SAFE IN YOUR ENVIRONMENT?YES OCCUPATION: [employer]. REVIEW OF SYSTEMS CONSTITUTIONAL: ANY RECENT FEVER NO . CHILLS NO . WEIGHT CHANGE OF UNKNOWN REASONS NO . GASTROENTEROLOGY: NEW UNEXPLAINABLE CHANGES IN BOWEL CONTROL NO . CONSTIPATION NO . GENITOURINARY: ANY NEW CHANGE IN BLADDER CONTROL? NO . NEUROLOGY: NEW ONSET DIZZINESS OR NEUROLOGICAL CHANGES NOT MENTIONED NO . NEW NUMBNESS OR PAIN PATTERNS NOT MENTIONED AND PERTINENT TO TODAY'S VISIT NO . CARDIOLOGY: NEW CHEST PRESSURE NO . PATIENT DENIES NO . RESPIRATORY: UNEXPLAINABLE COUGH NO . NEW SHORTNESS OF BREATH NO . VITAL SIGNS WT 240.6 LBS, HT 6'0, BMI 32.63 INDEX, BP 133/89 MM HG, HR 79 /MIN, RR 18 /MIN, TEMP 97.5 F, OXYGEN SAT % 97%, BLOOD GLUCOSE LEVEL 89, SAFE IN ENV? (Y/N) YES, NA INITIALS SC 13:26, REVIEWED BY: [employer]. JUDITH RN. EXAMINATION GENERAL EXAMINATION: THE PATIENT IS ALERT, ORIENTED TIMES THREE AND COOPERATIVE. LUNGS ARE CLEAR TO AUSCULTATION. HEART SHOWS REGULAR RHYTHM, NO MURMURS AND NO GALLOPS. THE LEFT LEG IS WEAKER THAN THE RIGHT LEG ON FLEXION AND EXTENSION. STRAIGHT LEG RAISE IS POSITIVE FOR RADICULOPATHY ON THE LEFT AT [address] DATED 03/09/2021 SHOWS FUSION AT L5-S1. 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 Brian ATWOOD RN. CLINICAL NOTES: I DISCUSSED ALTERNATIVES WITH MR. ELISE. I WILL REQUEST AUTHORIZATION FOR A CAUDAL EPIDURAL. THE CAUDAL HELPED HIM IN THE PAST. I MAY USE A CATHETER BUT I WILL TRY FIRST WITHOUT THE CATHETER. IF THE CAUDAL DOES NOT WORK, THEN WE WILL TRY A TRANSFORAMINAL L4-L5, L5-S1. THIS SHOULD BE BOOKED A LONG PROCEDURE. THE PATIENT REPORTS UNDERSTANDING AND AGREES WITH THE PLAN. I, WINSOME PEMBERTON, DOCUMENTED THE ABOVE INFORMATION ACTING A SCRIBE FOR DR. ANTONIO. I HAVE REVIEWED THE ABOVE DOCUMENT, WRITTEN BY WINSOME PEMBERTON, FLAT SORTING MACHINE CLERK, AND I VERIFY THAT IT IS ACCURATE. PROCEDURE CODES FA211 ESTABILISHED PATIENT [facility] CHARGE 11962 OFFICE/OUTPATIENT VISIT EST DISPOSITION & COMMUNICATION FOLLOW UP REQUEST AUTHORIZATION FOR CAUDAL EPIDURAL STEROID INJECTION, LONG PROCEDURE (REASON: REQUEST AUTHORIZATION FOR CAUDAL EPIDURAL STEROID INJECTION, LONG PROCEDURE) ELECTRONICALLY SIGNED BY YAN ANTONIO MD, MD ON 09/23/2020 AT 04:17 PM EDT DISCLAIMER : THIS IS A VISIT SUMMARY EXTRACTED FROM THE [employer] CHART. IT IS NOT A COPY OF THE [employer] PROGRESS NOTE. CIRILO
== END ==
LOC: M PAIN 13:20
PROVIDERS: ATTEND Anesthesiology
DX: M96.1 Postlaminectomy syndrome, not elsewhere classified (principal); M51.16 Intervertebral disc disorders with radiculopathy, lumbar region; E11.9 Type 2 diabetes mellitus without complications; F17.200 Nicotine dependence, unspecified, uncomplicated; Z79.899 Other long term (current) drug therapy

== ENCOUNTER → 2020-09-28 | Outpatient (CLI) | payer OTHER | LOC: M LABSMTC 14:11 | PROVIDERS: ATTEND Anesthesiology | DX: Z20.828 Contact with and (suspected) exposure to other viral communicable diseases (principal); Z11.59 Encounter for screening for other viral diseases ==

== ENCOUNTER → 2020-10-03 | Outpatient (CLI) | payer OTHER ==
[~2020-10-03] MED LIST changes: -BUPIVACAINE HCL 0.25% 30ML VIAL As Ordered ONE; -dexameTHASONE 10MG/1ML VIAL PRES.FREE (J1100 PER 1MG) As Ordered ONE; +diazePAM 5MG TABLET As Ordered ONE; +methylPREDNISolone SUSP 40MG/ML 1ML VIAL (DEPO MEDROL) As Ordered ONE; +oxyCODONE 5MG TAB As Ordered ONE
--- NOTE | 2020-10-03 16:08 | REP ---
INDICATION: CAUDAL EPIDURAL STEROID INJECTION. COMPARISON: None. TECHNIQUE: Six C-arm views lumbosacral spine. FINDINGS: Fusion hardware is seen at the lumbosacral junction. [place] are seen overlying the sacrum and coccyx. IMPRESSION: 39 seconds fluoroscopy time utilized. <Electronically signed by Gilson Chu > 10/03/20 8810
--- NOTE | 2020-10-06 02:01 | ECWPNPC ---
PATIENT NAME: HUMPHREY ELISE : 1970 GENDER: MALE VISIT DATE: 10/03/2020 DISCHARGE DATE: 10/03/20 161 VISIT LOCKED DATE TIME: PHYSICIAN: YAN ANTONIO MD RESOURCE: YAN ANTONIO MD REASON FOR APPOINTMENT 1. CAUDAL EPIDURAL STEROID INJECTION HISTORY OF PRESENT ILLNESS FALL RISK SCREENING: SCREENING : NO FALLS REPORTED IN THE LAST YEAR. PAIN SCREENING: PATIENT HAS A COMPLAINT OF ACUTE OR CHRONIC PAIN :YES LOCATION OF PAIN:LOW BACK, LEG(S) LOWER BACK, LEFT BUTTOCK, DOWN INTO LEFT LEG INTENSITY OF PAIN (SCALE OF 1 TO 10):6 5-9/10 WHAT DOES YOUR PAIN FEEL LIKE:ACHING, CONTINOUS, THROBBING DURATION:CONTINOUS, AWAKENS FROM SLEEP PAIN IS INCREASED BY:ACTIVITIES PAIN IS DECREASED BY:USE OF PAIN MEDICATIONS, OTHERS LYING DOWN PLAN/GOALS/TREATMENT/INTERVENTION/FOLLOW UP:SEE PLAN GENERAL: -. NURSING NOTE: -. PAIN CENTER INTAKE QUESTIONS: DO YOU HAVE A HISTORY OF MRSA? :NO DO YOU TAKE A BLOOD THINNERS? :NO DO YOU HAVE ANY BLEEDING DISORDERS? :NO ANY NEW NUMBNESS OR WEAKNESS IN YOUR LEGS OR ARMS? :NO ANY PACEMAKER,DEFIBRILLATOR, OR DORSAL COLUMN STIMULATOR? :NO DO YOU HAVE ANY RASHES OR OPEN SORES? :NO ARE YOU ALLERGIC TO IV DYE? :NO ARE YOU DIABETIC? :YES THIS AM 99. ANY NEW PROBLEMS WITH YOUR MEDICATIONS? :NO HAVE YOU RECEIVED A VACCINE IN THE PAST 30 DAYS? :NO DO YOU PLAN TO RECEIVE A VACCINE IN THE NEXT 21 DAYS? :NO DO YOU NEED ANY PRESCRIPTION? :NO DO YOU TAKE ANY IMMUNOSUPPRESSIVE MEDICATIONS? :NO ANY HISTORY OF SEIZURES? :NO ANY HISTORY OF CARDIAC ISSUES OR EVENTS? :NO DO YOU HAVE ANY KIDNEY OR LIVER DISEASE? :NO DO YOU HAVE SLEEP APNEA? :YES DO YOU WEAR A CPAP?NO ANY RECENT HEAD INJURY? :NO DO YOU HAVE ANY NEW INFECTIONS? :NO IS THERE A CHANCE YOU COULD BE ? :NO ARE YOU BREAST FEEDING? :NO WHEN DID YOU LAST EAT? : 10/02/20 2100 WHEN DID YOU LAST DRINK? : 10/03/20 1230 WHAT DID YOU LAST DRINK? : SIPS OF WATER NAME OF PERSON DRIVING YOU HOME? : GABRIELA (SON) DO YOU HAVE ANY OTHER QUESTIONS OR CONCERNS? : NO CURRENT MEDICATIONS TAKING CYCLOBENZAPRINE HCL 10 MG TABLET 1 TABLET AT BEDTIME NEEDED ORALLY ONCE A DAY, NOTES: FEW DAYS AGO TAKING TRULICITY 1.5 MG/0.5ML SOLUTION PEN-INJECTOR DIRECTED SUBCUTANEOUS ONCE A WEEK, NOTES: 09/24/20 TAKING GABAPENTIN 300 MG CAPSULE 1 CAPSULE ORALLY 3X DAILY, NOTES: 10/03/20 TAKING PERCOCET 10-325 MG TABLET 1 TABLET NEEDED ORALLY AT NIGHT PRN FOR SEVERE PAIN MDD1, NOTES: 10/02/20 NOT-TAKING CHLORTHALIDONE 25 MG TABLET 1 TABLET IN THE MORNING WITH FOOD ORALLY ONCE A DAY NOT-TAKING NAPROXEN SODIUM 220 MG TABLET 1 TABLET WITH FOOD OR MILK NEEDED ORALLY EVERY 12 HRS NOT-TAKING LOSARTAN POTASSIUM 100 MG TABLET 1 TABLET ORALLY ONCE A DAY NOT-TAKING GABAPENTIN 600 MG TABLET 1 TABLET ORALLY ONCE A DAY NOT-TAKING ESCITALOPRAM OXALATE 20 MG TABLET 1 TABLET ORALLY ONCE A DAY PAST MEDICAL HISTORY ARTHRITIS LOW BACK STRAIN TYPE 2 DIABETES MELLITUS ESSENTIAL HYPERTENSION PURE HYPERCHOLESTEROLEMIA ALLERGIES NKDA NKFA NKEA SOCIAL HISTORY GENERAL: TOBACCO USE ARE YOU A:CURRENT SMOKER ARE YOU INTERESTED IN QUITTING?NOT READY TO QUIT PATIENT COUNSELED ON THE DANGERS OF TOBACCO USE AND URGED TO QUIT:09/30/2020 VAPORNO E-CIGARETTENO LATEX QUESTIONNAIRE LATEX ALLERGY : HAVE YOU EVER DEVELOPED ANY TYPE OF REACTION AFTER HANDLING LATEX PRODUCTS SUCH RUBBER GLOVES, CONDOMS, DIAPHRAGMS, BALLOONS, SOCKS, OR UNDERWEAR?NO LATEX ALLERGY : HAVE YOU EVER DEVELOPED ANY TYPE OF REACTION DURING OR AFTER DENTAL APPOINTMENT, VAGINAL/RECTAL EXAMINATION, SURGICAL PROCEDURE, OR ANY OTHER EXPOSURE?NO DATE ASKED : 08/31/2020 LATEX RISK : HAVE YOU EVER HAD ANY DIFFICULTY BREATHING OR HIVES AFTER EATING OR HANDLING ANY FRUITS, OR VEGETABLES; SUCH KIWI, BANANAS, STONE FRUITS, OR CHESTNUTSNO LATEX RISK : DO YOU HAVE A PREVIOUS PERSONAL HISTORY OF MORE THAN NINE SURGERIES, SPINA BIFIDA, OR REPEATED CATHERIZATIONS? NO LATEX RISK : ARE YOU FREQUENTLY EXPOSED TO LATEX PRODUCTS IN YOUR OCCUPATION?NO ALCOHOL USE: YES ONCE IN A GREAT GREAT WHILE.. RECREATIONAL DRUG USE DRUG USE?NO LANGUAGE LANGUAGES SPOKEN:PERSIAN LEARNING BARRIERS / SPECIAL NEEDS CHANGE FROM LAST VISIT?NO BARRIERS TO LEARNING?NO HEARING IMPAIRED?NO VISION IMPAIRED?YES COGNITIVELY IMPAIRED?NO :CORRECTIVE LENSES READINESS TO LEARN?YES LEARNING PREFERENCES?NO LEARNING CAPABILITIES PRESENT?YES EMOTIONAL BARRIERS?NO SPECIAL DEVICES?NO BAGEL MAKER NEEDED?NO DOMESTIC VIOLENCE DO YOU FEEL SAFE IN YOUR ENVIRONMENT?YES OCCUPATION: [employer]. VITAL SIGNS WT 237.4 LBS, HT 6'0, BMI 32.19 INDEX, BP 157/81 MM HG, HR 79 /MIN, RR 18 /MIN, TEMP 98.0 F, OXYGEN SAT % 98%, BLOOD GLUCOSE LEVEL 99, SAFE IN ENV? (Y/N) YES, NA INITIALS AW 1417, REVIEWED BY: Doug CHAPA FUR TINTER. EXAMINATION GENERAL: THE PATIENT IS ALERT, ORIENTED TIMES THREE AND COOPERATIVE. LUNGS ARE CLEAR TO AUSCULTATION. HEART SHOWS REGULAR RHYTHM, NO MURMURS AND NO GALLOPS. ASSESSMENTS LUMBAR POST-LAMINECTOMY SYNDROME - M96.1 (PRIMARY) TREATMENT LUMBAR POST-LAMINECTOMY SYNDROME [facility] FLUORO GUIDANCE (PAIN)[id number] MEDICATION: VALIUM TAB 10MG ORALLY (DIAZEPAM)HUBERT CISNEROS Elana 10/03/2020 2:53:36 PM > VERIFIED. ORLANDO CHAPA 10/03/2020 2:57:59 PM > ADMINISTERED AT 1455. MEDICATION: OXYCODONE HCL TAB 10MG ORALLYSYHUBERT KNAPP Elana 10/03/2020 2:53:55 PM > VERIFIED. ORLANDO CHAPA 10/03/2020 2:58:23 PM > ADMINISTERED AT 1455. COMPLETION OF PROCEDURAL VISIT WHEN MEETS CRITERIA OTHERS NOTES: 09/30/2020 1259 PRE PROCEDURE PHONE CALL COMPLETED WITH PATIENT. Jason KONG RN. PROCEDURES PAIN NURSING RECORD PROCEDURE IN ROOM 1520, PHYSICIAN IN ROOM 1540, START 1546, FINISH 1552, PHYSICIAN OUT OF ROOM 1554, OUT OF ROOM 1600, ECG NORMAL SINUS, PATIENT SHIELDED YES, SAFETY STRAP YES, PREP BETADINE Doug CHAPA RN, DRESSING TEGADERM DR. ANTONIO LOC: ORLANDO CHAPA 10/03/2020 3:20:24 PM > 1. ALERT, ORIENTED LOC REMAINED AT BASELINE THROUGHOUT THE PROCEDURE RESP: ORLANDO CHAPA 10/03/2020 3:20:24 PM > 1. REGULAR, NO DYSPNEA COLOR: ORLANDO CHAPA 10/03/2020 3:20:24 PM > 1. PINK SKIN: ORLANDO CHAPA 10/03/2020 3:20:24 PM > 1. WARM, DRY POSITION: ORLANDO CHAPA 10/03/2020 3:20:24 PM > 1. PRONE VITALS: 1510 HR 68 02 93% BP 138/87 R 18 AW. ORLANDO CHAPA 10/03/2020 3:20:26 PM > 180/106, 72, 98% RA, 18. ORLANDO CHAPA 10/03/2020 3:35:01 PM > 178/68, 70, 96% RA, 18. ORLANDO CHAPA 10/03/2020 4:05:21 PM > POST PROCEDURE 169/104 RIGHT ARM, 146/98 LEFT ARM, 75, 95% RA, 18. COMPLETION OF PROCEDURE APPOINTMENT: POST PAIN 07/27 SORE AT INJECTION SITE., DRESSING SITE DRY AND INTACT, IV N/A, GAIT STEADY, TEACHING COMPLETED, PATIENT ACKNOWLEDGES UNDERSTANDING YES, PROCEDURE APPOINTMENT COMPLETED AT 1610 BY: Doug CHAPA RN. PN CAUDAL EPIDURALS PRE PROCEDURE DIAGNOSIS LUMBAR POST LAMINECTOMY PAIN SYNDROME POST PROCEDURE DIAGNOSIS LUMBAR POST LAMINECTOMY PAIN SYNDROME PROCEDURE CAUDAL EPIDURAL STEROID INJECTION SURGEON DR. YAN ANTONIO CONE CLEANER NONE ANESTHESIA LOCAL PRE PROCEDURE NOTE THE PATIENT HAS HISTORY OF CHRONIC LOW BACK PAIN. I EVALUATED THE PATIENT AND REVIEWED THE CHART. I WENT OVER THE RISKS, ALTERNATIVES, AND BENEFITS ASSOCIATED WITH THIS PROCEDURE. THE PATIENT WOULD LIKE TO PROCEED AND GIVE CONSENT TO PERFORMED THE PROCEDURE. THE PATIENT DENIES UNEXPLAINABLE WEIGHT LOSS, FEVER, CHILLS, OR NEW CHANGES IN URINARY OR BOWEL CONTROL. THE PATIENT IS COVID-19 NEGATIVE DESCRIPTION OF PROCEDURE THE PATIENT WAS BROUGHT TO THE PROCEDURE ROOM AND PLACED IN THE PRONE POSITION. THE LUMBOSACRAL AREA WAS CLEANED WITH BETADINE SOLUTION AND DRAPED ASEPTICALLY. THE PROCEDURE WAS DONE UNDER STERILE CONDITIONS. A TIMEOUT WAS PERFORMED WHERE THE CONSENTED SITE WAS VERIFIED WITH EVERYONE IN THE ROOM. UNDER FLUOROSCOPIC GUIDANCE, THE TARGET POINT WAS SELECTED AT THE EPIDURAL SPACE BELOW THE SACROCOCCYGEAL LIGAMENT. I CONFIRMED AGAIN THE SITE OF TARGET. LIDOCAINE 0.5% WAS USE TO NUMB THE SKIN AND THE SUBCUTANEOUS TISSUE BELOW IT. SPINAL NEEDLE, 22-GAUGE 3.5 INCH, WAS ADVANCED UNDER FLUOROSCOPIC GUIDANCE AND FOLLOWING PATIENT FEEDBACK UNTIL THE EPIDURAL SPACE WAS REACHED BY THE LOSS OF RESISTANCE TECHNIQUE. ISOVUE M DYE 30%, 0.25 ML, WAS INJECTED SHOWING ADEQUATE SPREAD OF THE DYE. THEN, A SOLUTION OF 6 ML OF NORMAL SALINE WITH DEPO-MEDROL 80 MG WAS INJECTED SLOWLY FOLLOWING THE PATIENT FEEDBACK. THERE WAS NO EVIDENCE OF BLOOD, PARESTHESIA OR CEREBROSPINAL FLUID DURING THE PROCEDURE. THE PATIENT WAS SENT TO THE RECOVERY ROOM. THE PATIENT WAS MOVING THE EXTREMITIES AND DOING WELL. THERE WAS NO COMPLICATION DURING THE PROCEDURE. ESTIMATED BLOOD LOSS LESS THAN 5 ML. FLUOROSCOPY TIME WAS 39 SECONDS POST PROCEDURE NOTE I WAS ABLE TO PERFORM THE PROCEDURE TODAY WITH A 22-GAUGE WITHOUT DIFFICULTY. I AM LOOKING FOR LONG LASTING PAIN RELIEF. OPTIONS INCLUDE DOING THE SAME PROCEDURE WITH A CATHETER WHICH WAS I GOING TO DO TODAY IF I HAD DIFFICULTY, ALSO, WE CAN CONSIDER AND TRANSFORAMINAL L5-S1 WHICH MAY BE DIFFICULT DUE TO THE ACCESS. THE PATIENT WILL BE SEEN IN A FOLLOW UP IN THE NEXT FEW WEEKS. I AM LOOKING FOR LONG LASTING RELIEF FOR THE PATIENT WITH THIS INTERVENTION. INSTRUCTIONS WERE GIVEN, QUESTIONS WERE ANSWERED, AND THE PATIENT EXPRESSED UNDERSTANDING AND AGREES WITH THE PLAN. I, WINSOME PEMBERTON, DOCUMENTED THE ABOVE INFORMATION ACTING A SCRIBE FOR DR. ANTONIO. I HAVE REVIEWED THE ABOVE DOCUMENT, WRITTEN BY WINSOME PEMBERTON, CAREER AND GUIDANCE COUNSELOR, AND I VERIFY THAT IT IS ACCURATE PROCEDURE CODES 76996 LUMBAR/SACRAL W/ IMAGING DISPOSITION & COMMUNICATION FOLLOW UP FOLLOW UP WITH DR. Meneses (REASON: POST CAUDAL EPIDURAL STEROID INJECTION) ELECTRONICALLY SIGNED BY YAN ANTONIO MD, MD ON 10/05/2020 AT 04:58 PM EDT DISCLAIMER : THIS IS A VISIT SUMMARY EXTRACTED FROM THE [employer] CHART. IT IS NOT A COPY OF THE [employer] PROGRESS NOTE. CIRILO
== END ==
LOC: M PAIN 14:00
PROVIDERS: ATTEND Anesthesiology
DX: M96.1 Postlaminectomy syndrome, not elsewhere classified (principal); E11.9 Type 2 diabetes mellitus without complications; G47.30 Sleep apnea, unspecified; F17.200 Nicotine dependence, unspecified, uncomplicated; Z79.899 Other long term (current) drug therapy
CPT/HCPCS: 62323; J1030; Q9967

== ENCOUNTER → 2020-10-18 | Outpatient (CLI) | payer OTHER ==
--- NOTE | 2020-10-21 03:08 | ECWPNPC ---
PATIENT NAME: HUMPHREY ELISE : 1970 GENDER: MALE VISIT DATE: 10/18/2020 DISCHARGE DATE: 10/18/20 1552 VISIT LOCKED DATE TIME: PHYSICIAN: YAN ANTONIO MD RESOURCE: YAN ANTONIO MD REASON FOR APPOINTMENT 1. POST CAUDAL EPIDURAL STEROID INJECTION HISTORY OF PRESENT ILLNESS PAIN CENTER INTAKE QUESTIONS: DO YOU HAVE A HISTORY OF MRSA? :NO DO YOU TAKE A BLOOD THINNERS? :NO DO YOU HAVE ANY BLEEDING DISORDERS? :NO ANY NEW NUMBNESS OR WEAKNESS IN YOUR LEGS OR ARMS? :NO ANY PACEMAKER,DEFIBRILLATOR, OR DORSAL COLUMN STIMULATOR? :NO DO YOU HAVE ANY RASHES OR OPEN SORES? :NO ARE YOU ALLERGIC TO IV DYE? :NO ARE YOU DIABETIC? :NO ANY NEW PROBLEMS WITH YOUR MEDICATIONS? :NO HAVE YOU RECEIVED A VACCINE IN THE PAST 30 DAYS? :NO DO YOU PLAN TO RECEIVE A VACCINE IN THE NEXT 21 DAYS? :NO DO YOU NEED ANY PRESCRIPTION? :NO DO YOU TAKE ANY IMMUNOSUPPRESSIVE MEDICATIONS? :NO DO YOU HAVE ANY KIDNEY OR LIVER DISEASE? :NO IS THERE A CHANCE YOU COULD BE ? :NO ARE YOU BREAST FEEDING? :NO 50-YEAR-OLD MALE PATIENT WITH A HISTORY OF CHRONIC LOW BACK AND MAINLY LEFT LEG PAIN. THE PATIENT DESCRIBES THE PAIN SEVERE AND ACHING WITH A PAIN SCORE RANGING FROM 7-10/10. THE PATIENT HAS A HISTORY OF 3 BACK SURGERIES. WE DID A CAUDAL EPIDURAL AND UNFORTUNATELY IT DID NOT HELP HIM AND MADE THE PAIN FEEL WORSE. IT IS AFFECTING HIS ABILITY TO DO ACTIVITIES SUCH CLEANING HIS HOUSE AND WALKING AROUND. HE HAS TRIED MEDICATION MANAGEMENT AND THE PAIN PERSISTS. GENERAL: -. FALL RISK SCREENING: SCREENING YES IN JULY AND SPRAINED HISRIGHT SHOULDER. PAIN SCREENING: PATIENT HAS A COMPLAINT OF ACUTE OR CHRONIC PAIN :YES LOCATION OF PAIN:LEFT HIP, LOW BACK, THIGH(S) INTENSITY OF PAIN (SCALE OF 1 TO 10):8 WHAT DOES YOUR PAIN FEEL LIKE:CONTINOUS, SHARP, STABBING, TENDER NURSING NOTE: -. CURRENT MEDICATIONS TAKING CYCLOBENZAPRINE HCL 10 MG TABLET 1 TABLET AT BEDTIME NEEDED ORALLY ONCE A DAY, NOTES: FEW DAYS AGO TAKING TRULICITY 1.5 MG/0.5ML SOLUTION PEN-INJECTOR DIRECTED SUBCUTANEOUS ONCE A WEEK TAKING GABAPENTIN 300 MG CAPSULE 1 CAPSULE ORALLY 3X DAILY TAKING PERCOCET 10-325 MG TABLET 1 TABLET NEEDED ORALLY AT NIGHT PRN FOR SEVERE PAIN MDD1 NOT-TAKING CHLORTHALIDONE 25 MG TABLET 1 TABLET IN THE MORNING WITH FOOD ORALLY ONCE A DAY NOT-TAKING NAPROXEN SODIUM 220 MG TABLET 1 TABLET WITH FOOD OR MILK NEEDED ORALLY EVERY 12 HRS NOT-TAKING LOSARTAN POTASSIUM 100 MG TABLET 1 TABLET ORALLY ONCE A DAY NOT-TAKING GABAPENTIN 600 MG TABLET 1 TABLET ORALLY ONCE A DAY NOT-TAKING ESCITALOPRAM OXALATE 20 MG TABLET 1 TABLET ORALLY ONCE A DAY MEDICATION LIST REVIEWED AND RECONCILED WITH THE PATIENT PAST MEDICAL HISTORY ARTHRITIS LOW BACK STRAIN TYPE 2 DIABETES MELLITUS ESSENTIAL HYPERTENSION PURE HYPERCHOLESTEROLEMIA ALLERGIES NKDA SURGICAL HISTORY FALL SPRAIN RIGHT SHOULDER 08/2020 SPINAL FUSION L5-S! 2013 HOSPITALIZATION/MAJOR DIAGNOSTIC PROCEDURE FOR SURGERIES REVIEW OF SYSTEMS CONSTITUTIONAL: ANY RECENT FEVER NO . CHILLS NO . WEIGHT CHANGE OF UNKNOWN REASONS NO . GASTROENTEROLOGY: NEW UNEXPLAINABLE CHANGES IN BOWEL CONTROL NO . CONSTIPATION NO . GENITOURINARY: ANY NEW CHANGE IN BLADDER CONTROL? NO . NEUROLOGY: NEW ONSET DIZZINESS OR NEUROLOGICAL CHANGES NOT MENTIONED NO . NEW NUMBNESS OR PAIN PATTERNS NOT MENTIONED AND PERTINENT TO TODAY'S VISIT NO . CARDIOLOGY: NEW CHEST PRESSURE NO . PATIENT DENIES NO . RESPIRATORY: UNEXPLAINABLE COUGH NO . NEW SHORTNESS OF BREATH NO . VITAL SIGNS WT 233.4 LBS, HT 6'0, BMI 31.65 INDEX, BP 152/83 MM HG, HR 96 /MIN, RR 18 /MIN, TEMP 98.0 F, OXYGEN SAT % 94%, SAFE IN ENV? (Y/N) YES, NA INITIALS AW 1352, REVIEWED BY: KG. EXAMINATION GENERAL: THE PATIENT IS ALERT, ORIENTED TIMES THREE AND COOPERATIVE. LUNGS ARE CLEAR TO AUSCULTATION. HEART SHOWS REGULAR RHYTHM, NO MURMURS AND NO GALLOPS. TENDERNESS IN THE PARASPINAL MUSCLE IN THE LOWER BACK. HIS WALK IS ANTALGIC. HE IS LIMPING FROM THE LEFT LEG WHICH IS WEAKER THAN THE RIGHT ON FLEXION AND EXTENSION. STRAIGHT LEG RAISE IS POSITIVE FOR RADICULOPATHY AT 20 DEGREES. MRI OF THE LUMBOSACRAL SPINE DATED 08/05/2019 SHOWS BULGING DISC AND POST LAMINECTOMY CHANGES. ASSESSMENTS OTHER CHRONIC PAIN - G89.29 (PRIMARY) LUMBAR POST-LAMINECTOMY SYNDROME - M96.1 BACK PAIN, UNSPECIFIED BACK LOCATION, UNSPECIFIED BACK PAIN LATERALITY, UNSPECIFIED CHRONICITY - M54.9 TREATMENT OTHER CHRONIC PAIN START DULOXETINE HCL CAPSULE DELAYED RELEASE PARTICLES, 30 MG, 1 CAPSULE, ORALLY FOR PAIN, BID MDD2, 30 DAYS, 60, REFILLS 1 CONTINUE PERCOCET TABLET, 10-325 MG, 1 TABLET NEEDED, ORALLY FOR PAIN, BID MDD2, 30 DAYS, 45, REFILLS 0 START OXYCODONE-ACETAMINOPHEN TABLET, 5-325 MG, 1 TABLET NEEDED, ORALLY FOR PAIN, DAILY MDD1, 30 DAYS, 15, REFILLS 0 PAIN PROCEDURE LOGDATE OF PROCEDURE10/03/20PROCEDURE:CAUDAL EPIDURAL STEROID INJECTIONAMOUNT OF PRE SEDATEVALIUM 10MG, OXYCODONE 10MGRESULT:NOT MUCH RELIEF CLINICAL NOTES: I DISCUSSED ALTERNATIVES WITH MR. ELISE. I WILL REQUEST AUTHORIZATION FOR A CAUDAL EPIDURAL WITH A CATHETER WITH IV SEDATION. I WANT TO SEE IF I CAN ADVANCE A CABLE TO HELP HIM WITH HIS PAIN. I WILL ALSO START HIM ON CYMBALTA 30 MG 1 TABLET BID AND OXYCODONE 5 MG PO DAILY PRN ( 15/MONTH). I REVIEWED THE ISTOP. WE HAD A DISCUSSION ABOUT NARCOTICS AND THE PATIENT IS GOING TO BE CAREFUL WITH THE. WE DISCUSSED ALTERNATIVES. THE PATIENT WOULD LIKE TO MOVE FORWARD WITH WORKING TOWARDS DORSAL COLUMN STIMULATOR TRIAL. I WILL REQUEST A THORACIC TO EVALUATE THE EPIDURAL SPACE TO SEE IF THERE IS ENOUGH SPACE TO PASS THE LEADS AND THE PSYCHOLOGICAL EVALUATION THAT IS REQUIRED FOR THE TRIAL. I WILL SEE HIM FOR THE PRESEDATION AFTER THIS IS APPROVED. THE PATIENT REPORTS UNDERSTANDING AND AGREES WITH THE PLAN. I, WINSOME PEMBERTON, DOCUMENTED THE ABOVE INFORMATION ACTING A SCRIBE FOR DR. ANTONIO. I HAVE REVIEWED THE ABOVE DOCUMENT, WRITTEN BY WINSOME PEMBERTON, OPERATIONS CHIEF, AND I VERIFY THAT IT IS ACCURATE. . LUMBAR POST-LAMINECTOMY SYNDROME REFERRAL TO:[facility] REASON:PLEASE EVALUATE FOR DCS TRIAL BACK PAIN, UNSPECIFIED BACK LOCATION, UNSPECIFIED BACK PAIN LATERALITY, UNSPECIFIED CHRONICITY [facility] MRI SPINE,THORACIC WITHOUT [id number] PROCEDURE CODES FA211 ESTABILISHED PATIENT [facility] FACILITY CHARGE [id number] OFFICE/OUTPATIENT VISIT EST DISPOSITION & COMMUNICATION FOLLOW UP REQUEST AUTH FOR CAUDAL EPIDRUAL STEROID INJECTION WITH A CATHETER WITH IV SEDATION AND REQEUST AUTH FOR THORACIC MRI AND PYSCH EVALUATION (REASON: REQUEST AUTH FOR CAUDAL EPIDRUAL STEROID INJECTION WITH A CATHETER WITH IV SEDATION AND REQEUST AUTH FOR THORACIC MRI AND PYSCH EVALUATION) ELECTRONICALLY SIGNED BY YAN ANTONIO MD, MD ON 10/20/2020 AT 11:40 AM EDT DISCLAIMER : THIS IS A VISIT SUMMARY EXTRACTED FROM THE [employer] CHART. IT IS NOT A COPY OF THE [employer] PROGRESS NOTE. CIRILO
== END ==
LOC: M PAIN 13:40
PROVIDERS: ATTEND Anesthesiology
DX: M96.1 Postlaminectomy syndrome, not elsewhere classified (principal); M54.9 Dorsalgia, unspecified; E11.9 Type 2 diabetes mellitus without complications; Z79.899 Other long term (current) drug therapy

== ENCOUNTER → 2020-10-31 | Outpatient (CLI) | payer OTHER ==
--- NOTE | 2020-11-03 01:01 | ECWPNPC ---
PATIENT NAME: HUMPHREY ELISE : 1970 GENDER: MALE VISIT DATE: 10/31/2020 DISCHARGE DATE: 10/31/20 1506 VISIT LOCKED DATE TIME: PHYSICIAN: DEJUAN SIERRA RESOURCE: DEJUAN SIERRA REASON FOR APPOINTMENT 1. F/U PER DR. Meneses HISTORY OF PRESENT ILLNESS GENERAL: -. FALL RISK SCREENING: SCREENING : NO FALLS REPORTED IN THE LAST YEAR. PAIN SCREENING: PATIENT HAS A COMPLAINT OF ACUTE OR CHRONIC PAIN :YES LOCATION OF PAIN:LOW BACK, LEFT HIP INTENSITY OF PAIN (SCALE OF 1 TO 10):7 WHAT DOES YOUR PAIN FEEL LIKE:ACHING, CONTINOUS, SHARP, STABBING DURATION:CONTINOUS, CONSTANT, AWAKENS FROM SLEEP PAIN IS INCREASED BY:ACTIVITIES, PROLONGED STANDING PAIN IS DECREASED BY:USE OF PAIN MEDICATIONS LAYING DOWN, HEAT NURSING NOTE: -. PAIN CENTER INTAKE QUESTIONS: DO YOU HAVE A HISTORY OF MRSA? :NO DO YOU TAKE A BLOOD THINNERS? :NO DO YOU HAVE ANY BLEEDING DISORDERS? :NO ANY NEW NUMBNESS OR WEAKNESS IN YOUR LEGS OR ARMS? :YES NUMBESS IN BOTH LEG GOES INTO TOES ANY PACEMAKER,DEFIBRILLATOR, OR DORSAL COLUMN STIMULATOR? :NO DO YOU HAVE ANY RASHES OR OPEN SORES? :NO ARE YOU ALLERGIC TO IV DYE? :NO ARE YOU DIABETIC? :YES ANY NEW PROBLEMS WITH YOUR MEDICATIONS? :NO HAVE YOU RECEIVED A VACCINE IN THE PAST 30 DAYS? :NO DO YOU PLAN TO RECEIVE A VACCINE IN THE NEXT 21 DAYS? :NO DO YOU NEED ANY PRESCRIPTION? :NO DO YOU TAKE ANY IMMUNOSUPPRESSIVE MEDICATIONS? :NO DO YOU HAVE ANY KIDNEY OR LIVER DISEASE? :NO IS THERE A CHANCE YOU COULD BE ? :NO ARE YOU BREAST FEEDING? :NO CURRENT MEDICATIONS TAKING CYCLOBENZAPRINE HCL 10 MG TABLET 1 TABLET AT BEDTIME NEEDED ORALLY ONCE A DAY, NOTES: FEW DAYS AGO TAKING TRULICITY 1.5 MG/0.5ML SOLUTION PEN-INJECTOR DIRECTED SUBCUTANEOUS ONCE A WEEK TAKING GABAPENTIN 300 MG CAPSULE 1 CAPSULE ORALLY 3X DAILY TAKING DULOXETINE HCL 30 MG CAPSULE DELAYED RELEASE PARTICLES 1 CAPSULE ORALLY FOR PAIN BID MDD2 TAKING PERCOCET 10-325 MG TABLET 1 TABLET NEEDED ORALLY FOR PAIN BID MDD2 TAKING OXYCODONE-ACETAMINOPHEN 5-325 MG TABLET 1 TABLET NEEDED ORALLY FOR PAIN DAILY MDD1 UNKNOWN CHLORTHALIDONE 25 MG TABLET 1 TABLET IN THE MORNING WITH FOOD ORALLY ONCE A DAY UNKNOWN NAPROXEN SODIUM 220 MG TABLET 1 TABLET WITH FOOD OR MILK NEEDED ORALLY EVERY 12 HRS UNKNOWN LOSARTAN POTASSIUM 100 MG TABLET 1 TABLET ORALLY ONCE A DAY UNKNOWN GABAPENTIN 600 MG TABLET 1 TABLET ORALLY ONCE A DAY UNKNOWN ESCITALOPRAM OXALATE 20 MG TABLET 1 TABLET ORALLY ONCE A DAY MEDICATION LIST REVIEWED AND RECONCILED WITH THE PATIENT PAST MEDICAL HISTORY ARTHRITIS LOW BACK STRAIN TYPE 2 DIABETES MELLITUS ESSENTIAL HYPERTENSION PURE HYPERCHOLESTEROLEMIA ALLERGIES NKDA SOCIAL HISTORY GENERAL: TOBACCO USE ARE YOU A:CURRENT SMOKER ARE YOU INTERESTED IN QUITTING?NOT READY TO QUIT COUNSELED THE PATIENT ON SMOKING EFFECTS, EDUCATION [id number]/14/2021 PATIENT COUNSELED ON THE DANGERS OF TOBACCO USE AND URGED TO QUIT:09/30/2020 VAPORNO E-CIGARETTENO LATEX QUESTIONNAIRE LATEX ALLERGY : HAVE YOU EVER DEVELOPED ANY TYPE OF REACTION AFTER HANDLING LATEX PRODUCTS SUCH RUBBER GLOVES, CONDOMS, DIAPHRAGMS, BALLOONS, SOCKS, OR UNDERWEAR?NO LATEX ALLERGY : HAVE YOU EVER DEVELOPED ANY TYPE OF REACTION DURING OR AFTER DENTAL APPOINTMENT, VAGINAL/RECTAL EXAMINATION, SURGICAL PROCEDURE, OR ANY OTHER EXPOSURE?NO DATE ASKED : 08/31/2020 LATEX RISK : HAVE YOU EVER HAD ANY DIFFICULTY BREATHING OR HIVES AFTER EATING OR HANDLING ANY FRUITS, OR VEGETABLES; SUCH KIWI, BANANAS, STONE FRUITS, OR CHESTNUTSNO LATEX RISK : DO YOU HAVE A PREVIOUS PERSONAL HISTORY OF MORE THAN NINE SURGERIES, SPINA BIFIDA, OR REPEATED CATHERIZATIONS? NO LATEX RISK : ARE YOU FREQUENTLY EXPOSED TO LATEX PRODUCTS IN YOUR OCCUPATION?NO ALCOHOL USE: YES ONCE IN A GREAT GREAT WHILE.. RECREATIONAL DRUG USE DRUG USE?NO LANGUAGE LANGUAGES SPOKEN:CZECH EDUCATION LEVEL OF EDUCATION:FINISHED HIGH SCHOOL LEARNING BARRIERS / SPECIAL NEEDS CHANGE FROM LAST VISIT?NO BARRIERS TO LEARNING?NO HEARING IMPAIRED?NO VISION IMPAIRED?YES :CORRECTIVE LENSES COGNITIVELY IMPAIRED?NO READINESS TO LEARN?YES LEARNING PREFERENCES?NO LEARNING CAPABILITIES PRESENT?YES EMOTIONAL BARRIERS?NO SPECIAL DEVICES?NO SENIOR SOFTWARE DEVELOPMENT ENGINEER NEEDED?NO DOMESTIC VIOLENCE DO YOU FEEL SAFE IN YOUR ENVIRONMENT?YES OCCUPATION: [employer]. VITAL SIGNS WT 233.8 LBS, HT 6'0, BMI 31.71 INDEX, BP 149/92 MM HG, HR 56 /MIN, RR 18 /MIN, TEMP 97.7 F, OXYGEN SAT % 98%, SAFE IN ENV? (Y/N) YES, NA INITIALS AW 1427, REVIEWED BY: MINDA CRUZ MA. ASSESSMENTS OTHER CHRONIC PAIN - G89.29 (PRIMARY) LUMBAR POST-LAMINECTOMY SYNDROME - M96.1 TREATMENT OTHER CHRONIC PAIN STOP PERCOCET TABLET, 10-325 MG, 1 TABLET NEEDED, ORALLY FOR PAIN, BID MDD2 CONTINUE OXYCODONE-ACETAMINOPHEN TABLET, 5-325 MG, 1 TABLET NEEDED, ORALLY FOR PAIN, DAILY MDD1 #30 TABS SHOULD LAST 30 DAYS, 30 DAYS, 30, REFILLS 0 INCREASE DULOXETINE HCL CAPSULE DELAYED RELEASE PARTICLES, 60 MG, 1 CAPSULE, ORALLY, DAILY, 30 DAYS, 30 CAPSULE, REFILLS 1 REFILL GABAPENTIN CAPSULE, 300 MG, 1 CAPSULE, ORALLY, 3X DAILY, 30 DAY(S), 90, REFILLS 2 PAIN PROCEDURE LOGDATE OF [id number]/01/2021PROCEDURE:CAUDAL EPIDURAL INJECTIONAMOUNT OF PRE SEDATEVALIUM 10MG; OXYCODONE 10MGRESULT:NO IMPROVEMENT AND SOME AGGRAVATION IN PAIN NOTES: DISCONTINUE PERCOCET 10/325. USE OXYCODONE 5/325 ONE TABLET PERIODICALLY FOR SEVERE PAIN EPISODES. OUR GOAL IS TO DISCONTINUE THIS MEDICATION AND I HAVE ADVISED HIM NOT TO USE IT DAILY BUT INFREQUENTLY FOR SEVERE PAIN EPISODES. INCREASED CYMBALTA TO 60 MG 1 DAILY. CONTINUE GABAPENTIN 300MG 3 TIMES DAILY. PATIENT HAS APPOINTMENT WITH DR. ANTONIO COMING UP IN THE NEAR FUTURE TO DISCUSS PROCEDURE WITH IV SEDATION. PATIENT ALSO HAS RECEIVED APPROVAL FOR PSYCHIATRIC EVALUATION TO CONSIDER DORSAL COLUMN STIMULATOR. PROCEDURE CODES FA211 ESTABILISHED PATIENT [facility] CHARGE DISPOSITION & COMMUNICATION FOLLOW UP KEEP SCHEDULED APPOINTMENTS W DR Meneses (REASON: LOW BACK PAIN/LEFT LEG RADICULOPATHY) ELECTRONICALLY SIGNED BY ART LINDSAY ON 11/02/2020 AT 02:13 PM EDT DISCLAIMER : THIS IS A VISIT SUMMARY EXTRACTED FROM THE [facility] CHART. IT IS NOT A COPY OF THE [facility] PROGRESS NOTE. CIRILO
== END ==
LOC: M PAIN 14:15
PROVIDERS: ATTEND Nurse Practitioner Family
DX: M96.1 Postlaminectomy syndrome, not elsewhere classified (principal); E11.9 Type 2 diabetes mellitus without complications; F17.200 Nicotine dependence, unspecified, uncomplicated; Z79.899 Other long term (current) drug therapy

== ENCOUNTER → 2020-11-25 | Outpatient (CLI) | payer OTHER | LOC: M LABSMTC 14:08 | PROVIDERS: ATTEND Anesthesiology | DX: Z20.822 Contact with and (suspected) exposure to COVID-19 (principal) ==

== ENCOUNTER → 2020-11-25 | Outpatient (CLI) | payer OTHER ==
--- NOTE | 2020-12-02 04:05 | ECWPNPC ---
PATIENT NAME: HUMPHREY ELISE : 1970 GENDER: MALE VISIT DATE: 11/25/2020 DISCHARGE DATE: 11/25/20 1535 VISIT LOCKED DATE TIME: PHYSICIAN: YAN ANTONIO MD RESOURCE: YAN ANTONIO MD REASON FOR APPOINTMENT 1. PRESEDATE CAUDAL EPIDRUAL STEROID INJECTION WITH A CATHETER WITH IV SEDATION HISTORY OF PRESENT ILLNESS GENERAL: 50-YEAR-OLD MALE PATIENT WITH A HISTORY OF CHRONIC LOW BACK AND MAINLY LEFT LEG PAIN. THE PATIENT DESCRIBES THE PAIN ACHING AND SEVERE WITH A PAIN SCORE RANGING FROM 6-10/10. THE PATIENT HAS HISTORY OF MULTIPLE BACK SURGERIES. THIS PAIN IS AFFECTING HIS ABILITY TO PERFORM ACTIVITIES SUCH CLEANING HIS HOUSE AND GROCERY SHOPPING. HE FEELS HIS PAIN IS WORSE THAN HIS RIGHT LEG. FALL RISK SCREENING: SCREENING : NO FALLS REPORTED IN THE LAST YEAR. PAIN SCREENING: PATIENT HAS A COMPLAINT OF ACUTE OR CHRONIC PAIN :YES LOCATION OF PAIN:LOW BACK, LEG(S) INTENSITY OF PAIN (SCALE OF 1 TO 10):6 WHAT DOES YOUR PAIN FEEL LIKE:ACHING, THROBBING DURATION:CONTINOUS, CONSTANT PAIN IS INCREASED BY:ACTIVITIES PAIN IS DECREASED BY: LAYING DOWN NURSING NOTE: -. PAIN CENTER INTAKE QUESTIONS: DO YOU HAVE A HISTORY OF MRSA? :NO DO YOU TAKE A BLOOD THINNERS? :NO DO YOU HAVE ANY BLEEDING DISORDERS? :NO ANY NEW NUMBNESS OR WEAKNESS IN YOUR LEGS OR ARMS? :NO ANY PACEMAKER,DEFIBRILLATOR, OR DORSAL COLUMN STIMULATOR? :NO DO YOU HAVE ANY RASHES OR OPEN SORES? :NO ARE YOU ALLERGIC TO IV DYE? :NO ARE YOU DIABETIC? :YES ANY NEW PROBLEMS WITH YOUR MEDICATIONS? :NO HAVE YOU RECEIVED A VACCINE IN THE PAST 30 DAYS? :NO DO YOU PLAN TO RECEIVE A VACCINE IN THE NEXT 21 DAYS? :NO DO YOU NEED ANY PRESCRIPTION? :YES OXYCODONE DO YOU TAKE ANY IMMUNOSUPPRESSIVE MEDICATIONS? :NO DO YOU HAVE ANY KIDNEY OR LIVER DISEASE? :NO IS THERE A CHANCE YOU COULD BE ? :NO ARE YOU BREAST FEEDING? :NO CURRENT MEDICATIONS TAKING CYCLOBENZAPRINE HCL 10 MG TABLET 1 TABLET AT BEDTIME NEEDED ORALLY ONCE A DAY TAKING TRULICITY 1.5 MG/0.5ML SOLUTION PEN-INJECTOR DIRECTED SUBCUTANEOUS ONCE A WEEK TAKING OXYCODONE-ACETAMINOPHEN 5-325 MG TABLET 1 TABLET NEEDED ORALLY FOR PAIN DAILY MDD1 #30 TABS SHOULD LAST 30 DAYS TAKING DULOXETINE HCL 60 MG CAPSULE DELAYED RELEASE PARTICLES 1 CAPSULE ORALLY DAILY TAKING GABAPENTIN 300 MG CAPSULE 1 CAPSULE ORALLY 3X DAILY UNKNOWN CHLORTHALIDONE 25 MG TABLET 1 TABLET IN THE MORNING WITH FOOD ORALLY ONCE A DAY UNKNOWN NAPROXEN SODIUM 220 MG TABLET 1 TABLET WITH FOOD OR MILK NEEDED ORALLY EVERY 12 HRS UNKNOWN LOSARTAN POTASSIUM 100 MG TABLET 1 TABLET ORALLY ONCE A DAY UNKNOWN GABAPENTIN 600 MG TABLET 1 TABLET ORALLY ONCE A DAY UNKNOWN ESCITALOPRAM OXALATE 20 MG TABLET 1 TABLET ORALLY ONCE A DAY MEDICATION LIST REVIEWED AND RECONCILED WITH THE PATIENT PAST MEDICAL HISTORY ARTHRITIS LOW BACK STRAIN TYPE 2 DIABETES MELLITUS ESSENTIAL HYPERTENSION PURE HYPERCHOLESTEROLEMIA ALLERGIES NKDA SOCIAL HISTORY GENERAL: TOBACCO USE ARE YOU A:CURRENT SMOKER ARE YOU INTERESTED IN QUITTING?NOT READY TO QUIT PATIENT COUNSELED ON THE DANGERS OF TOBACCO USE AND URGED TO QUIT:09/30/2020 COUNSELED THE PATIENT ON SMOKING EFFECTS, EDUCATION [id number]/14/2021 VAPORNO E-CIGARETTENO LATEX QUESTIONNAIRE LATEX ALLERGY : HAVE YOU EVER DEVELOPED ANY TYPE OF REACTION AFTER HANDLING LATEX PRODUCTS SUCH RUBBER GLOVES, CONDOMS, DIAPHRAGMS, BALLOONS, SOCKS, OR UNDERWEAR?NO LATEX ALLERGY : HAVE YOU EVER DEVELOPED ANY TYPE OF REACTION DURING OR AFTER DENTAL APPOINTMENT, VAGINAL/RECTAL EXAMINATION, SURGICAL PROCEDURE, OR ANY OTHER EXPOSURE?NO DATE ASKED : 08/31/2020 LATEX RISK : HAVE YOU EVER HAD ANY DIFFICULTY BREATHING OR HIVES AFTER EATING OR HANDLING ANY FRUITS, OR VEGETABLES; SUCH KIWI, BANANAS, STONE FRUITS, OR CHESTNUTSNO LATEX RISK : DO YOU HAVE A PREVIOUS PERSONAL HISTORY OF MORE THAN NINE SURGERIES, SPINA BIFIDA, OR REPEATED CATHERIZATIONS? NO LATEX RISK : ARE YOU FREQUENTLY EXPOSED TO LATEX PRODUCTS IN YOUR OCCUPATION?NO ALCOHOL USE: YES ONCE IN A GREAT GREAT WHILE.. RECREATIONAL DRUG USE DRUG USE?NO LANGUAGE LANGUAGES SPOKEN:KHMER EDUCATION LEVEL OF EDUCATION:FINISHED HIGH SCHOOL LEARNING BARRIERS / SPECIAL NEEDS CHANGE FROM LAST VISIT?NO BARRIERS TO LEARNING?NO HEARING IMPAIRED?NO VISION IMPAIRED?YES COGNITIVELY IMPAIRED?NO :CORRECTIVE LENSES READINESS TO LEARN?YES LEARNING PREFERENCES?NO LEARNING CAPABILITIES PRESENT?YES EMOTIONAL BARRIERS?NO SPECIAL DEVICES?NO ELECTRONICS HARDWARE DESIGN ENGINEER NEEDED?NO DOMESTIC VIOLENCE DO YOU FEEL SAFE IN YOUR ENVIRONMENT?YES OCCUPATION: [employer]. REVIEW OF SYSTEMS GLAUCOMA: NOTHYROID DISEASE: NOHYPERTENSION: YESHEART DISEASE: NOLUNG DISEASE: NODIABETES: YES, TYPE 2GI DISEASE: NO LIVER DISEASE: NO KIDNEY DISEASE: NOSTERIOD USE: NONEUROLOGICAL DISEASE: NOBACK PROBLEMS: YES, PAINEXTREMITIES: YES, PAINGENITOURINARY: NOBLEEDING DISORDER: NOASA CLASS: IIAIRWAY CLASS: II. VITAL SIGNS WT 236.8 LBS, HT 6'0, BMI 32.11 INDEX, BP 152/83 MM HG, HR 97 /MIN, RR 18 /MIN, TEMP 98.2 F, OXYGEN SAT % 95%, SAFE IN ENV? (Y/N) Y, NA INITIALS AW 1445, REVIEWED BY: EM. EXAMINATION GENERAL EXAMINATION: THE PATIENT IS ALERT, ORIENTED TIMES THREE AND COOPERATIVE. LUNGS ARE CLEAR TO AUSCULTATION. HEART SHOWS REGULAR RHYTHM, NO MURMURS AND NO GALLOPS. THE PATIENTS WALK IS ANTALGIC. HE IS LIMPING FROM THE LEFT LEG WHICH IS WEAKER THAN THE RIGHT LEG ON FLEXION AND EXTENSION. STRAIGHT LEG RAISE IS POSITIVE FOR RADICULOPATHY AT 45 DEGREES. MRI OF THE LUMBAR SPINE DATED 08/05/2019 SHOWS LAMINECTOMY CHANGES AT L5-S1, SOME BULGING DISC AT L4-L5, FACET ARTHROPATHY CHANGES AT MULTIPLE LEVELS. CT OF THE LUMBAR SPINE SHOWS SIMILAR CHANGES. 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 TREATMENT LUMBAR POST-LAMINECTOMY SYNDROME CONTINUE OXYCODONE-ACETAMINOPHEN TABLET, 10-325 MG, 1 TABLET NEEDED, ORALLY, DAILY MDD1 #30 TABS SHOULD LAST 30 DAYS, 30 DAYS, 30, REFILLS 0 LAB: URINE TEST GROUP (ORDERED FOR 11/25/2020) MEDICATION: PAIN FENTANYL CITRATE 25MCG IV (ORDERED FOR 12/26/2020)WINSOME PEMBERTON 11/30/2020 2:12:02 PM > ORDER CANCELED DEON SILVA 11/30/2020 2:23:43 PM > VERIFIED @ 1330 MED: PAIN VERSED 1MG IV MIDAZOLAM (ORDERED FOR 12/26/2020)DEON SILVA 11/30/2020 2:24:17 PM > VERIFIED @1330 MICHAELA SAMUEL 11/30/2020 2:27:39 PM > ADMINISTERED @ 1359 OXYGEN AT 2 LITERS PER NASAL CANNULA (ORDERED FOR 12/26/2020)DEON SILVA 11/30/2020 2:28:17 PM > ON @ 1340 OFF @1420 IV LACTATED RINGER'S AT KVO (ORDERED FOR 12/26/2020)DEON SILVA 11/30/2020 1:09:12 PM > KVO IN RWR DEON SILVA 11/30/2020 1:14:47 PM > 20G IV ACCESS OBTAINED IN RWR @ 1250. PATIENT TOLERATED WELL. TBRADLEYRN MEDICATION: PAIN ZOFRAN 4MG/2ML IV ONDANSETRON (ORDERED FOR 12/26/2020)HUBERT CISNEROS 11/30/2020 12:52:05 PM > VERIFIED. DEON SILVA 11/30/2020 1:11:37 PM > ADMINISTERED MED: PAIN BENADRYL 25MG IV DIPHENHYDRAMINE (ORDERED FOR 12/26/2020)HUBERT CISNEROS 11/30/2020 12:52:19 PM > VERIFIED. DEON SILVA 11/30/2020 1:12:12 PM > ADMINSTERED NOTES: REVIEWED THE PREPROCEDURE INSTRUCTIONS WITH THE PT THOUGHLY AND HE VERBALIZES UNDERSTANDING. CLINICAL NOTES: I DISCUSSED ALTERNATIVES WITH MR. ELISE. WE ARE GOING TO MOVE FORWARD WITH A CAUDAL WITH A CATHETER WITH IV SEDATION DUE TO ANXIETY AND DISCOMFORT ASSOCIATED WITH THE PROCEDURE. WE HAVE TRIED REGULAR EPIDURALS WITHOUT RELIEF. DEPENDING ON THE RESULTS, WE CAN CONSIDER A TRANSFORAMINAL EPIDURAL. WE CAN ALSO CONSIDER A DORSAL COLUMN STIMULATOR TRIAL. THE HYDROCODONE 10 MG AT NIGHT WAS STOPPED. HE CANNOT SLEEP AND HE FEELS THAT THIS AFFECTS HIS ABILITY TO FUNCTION. I SPOKE WITH THE PATIENT ABOUT THIS AND WE DECIDED TO RESTART THE HYDROCODONE 10 MG AT NIGHT. I DISCUSSED WITH HIM THAT HE HAS TO BE CAREFUL WITH THE MEDICATION AND TO KEEP IT IN A SAFE PLACE. HE KNOWS THAT THIS CAN CAUSE RESPIRATORY DEPRESSION OR DEPENDENCY. URINE TOX DATED 08/31/2020 IS WITHIN NORMAL LIMITS. THE PATIENT REPORTS UNDERSTANDING AND AGREES. I, WINSOME PEMBERTON, DOCUMENTED THE ABOVE INFORMATION ACTING A SCRIBE FOR DR. ANTONIO. I HAVE REVIEWED THE ABOVE DOCUMENT, WRITTEN BY WINSOME PEMBERTON, OPERATIONAL RISK MANAGER, AND I VERIFY THAT IT IS ACCURATE. PROCEDURE CODES FA211 ESTABILISHED PATIENT [facility] CHARGE [id number] OFFICE/OUTPATIENT VISIT EST DISPOSITION & COMMUNICATION FOLLOW UP OKAY TO BOOK (REASON: CAUDAL EPIDURAL STEROID INJECTION WITH IV SEDATION) ELECTRONICALLY SIGNED BY YAN ANTONIO MD, MD ON 12/01/2020 AT 02:11 PM EDT DISCLAIMER : THIS IS A VISIT SUMMARY EXTRACTED FROM THE [employer] CHART. IT IS NOT A COPY OF THE [employer] PROGRESS NOTE. CIRILO
== END ==
LOC: M PAIN 14:45
PROVIDERS: ATTEND Anesthesiology
DX: M96.1 Postlaminectomy syndrome, not elsewhere classified (principal); M51.16 Intervertebral disc disorders with radiculopathy, lumbar region; E11.9 Type 2 diabetes mellitus without complications; F17.200 Nicotine dependence, unspecified, uncomplicated; Z79.899 Other long term (current) drug therapy

== ENCOUNTER → 2020-11-30 | Outpatient (CLI) | payer OTHER ==
[~2020-11-30] MED LIST changes: +MIDAZOLAM INJ 2MG/2ML VIAL (J2250 PER 1MG) As Ordered ONE; +ONDANSETRON 4MG/2ML VIAL As Ordered ONE; -diazePAM 5MG TABLET As Ordered ONE; +diphenhydrAMINE 50MG/ML VIAL (J1200) As Ordered ONE; +fentaNYL 100 MCG/2 ML INJECTION (J3010) As Ordered ONE; -oxyCODONE 5MG TAB As Ordered ONE
--- NOTE | 2020-11-30 15:15 | REP ---
INDICATION: CAUDAL EPIDURAL STEROID INJECTION. COMPARISON: None. TECHNIQUE: Two views. 24.2 seconds of fluoroscopy time is reported. FINDINGS: A sequence of 2 last image hold fluoroscopically obtained spot radiograph(s) of the sacrum document(s) needle position(s) and contrast injection associated with injection procedure. IMPRESSION: Procedural imaging. <Electronically signed by Lemuel Estrada > 11/30/20 [id number]
--- NOTE | 2020-12-03 06:11 | ECWPNPC ---
PATIENT NAME: HUMPHREY ELISE : 1970 GENDER: MALE VISIT DATE: 11/30/2020 DISCHARGE DATE: 11/30/20 1456 VISIT LOCKED DATE TIME: PHYSICIAN: YAN ANTONIO MD RESOURCE: YAN ANTONIO MD REASON FOR APPOINTMENT 1. CAUDAL EPIDRUAL STEROID INJECTION WITH A CATHETER WITH IV SEDATION- PT MAY BE LATE HISTORY OF PRESENT ILLNESS FALL RISK SCREENING: SCREENING : NO FALLS REPORTED IN THE LAST YEAR. PAIN SCREENING: PATIENT HAS A COMPLAINT OF ACUTE OR CHRONIC PAIN :YES LOCATION OF PAIN:LOW BACK, LEG(S) INTENSITY OF PAIN (SCALE OF 1 TO 10):6 WHAT DOES YOUR PAIN FEEL LIKE:ACHING, THROBBING DURATION:CONTINOUS, AWAKENS FROM SLEEP PAIN IS INCREASED BY:ACTIVITIES, PROLONGED STANDING PAIN IS DECREASED BY:USE OF PAIN MEDICATIONS, OTHERS LAYING DOWN PLAN/GOALS/TREATMENT/INTERVENTION/FOLLOW UP:SEE PLAN NURSING NOTE: -. PAIN CENTER INTAKE QUESTIONS: DO YOU HAVE A HISTORY OF MRSA? :NO DO YOU TAKE A BLOOD THINNERS? :NO DO YOU HAVE ANY BLEEDING DISORDERS? :NO ANY NEW NUMBNESS OR WEAKNESS IN YOUR LEGS OR ARMS? :NO ANY PACEMAKER,DEFIBRILLATOR, OR DORSAL COLUMN STIMULATOR? :NO DO YOU HAVE ANY RASHES OR OPEN SORES? :NO ARE YOU ALLERGIC TO IV DYE? :NO ARE YOU DIABETIC? :YES FSBS: 108 ANY NEW PROBLEMS WITH YOUR MEDICATIONS? :NO HAVE YOU RECEIVED A VACCINE IN THE PAST 30 DAYS? :NO DO YOU PLAN TO RECEIVE A VACCINE IN THE NEXT 21 DAYS? :NO DO YOU TAKE ANY IMMUNOSUPPRESSIVE MEDICATIONS? :NO ANY HISTORY OF SEIZURES? :NO ANY HISTORY OF CARDIAC ISSUES OR EVENTS? :NO DO YOU HAVE ANY KIDNEY OR LIVER DISEASE? :NO DO YOU HAVE SLEEP APNEA? :NO ANY RECENT HEAD INJURY? :NO DO YOU HAVE ANY NEW INFECTIONS? :NO IS THERE A CHANCE YOU COULD BE ? :NO ARE YOU BREAST FEEDING? :NO WHEN DID YOU LAST EAT? : 11/29/20 1330 WHEN DID YOU LAST DRINK? : 1000 WHAT DID YOU LAST DRINK? : WATER NAME OF PERSON DRIVING YOU HOME? : DO YOU HAVE ANY OTHER QUESTIONS OR CONCERNS? : NO CURRENT MEDICATIONS TAKING CYCLOBENZAPRINE HCL 10 MG TABLET 1 TABLET AT BEDTIME NEEDED ORALLY ONCE A DAY, NOTES: COUPLE DAYS AGO TAKING TRULICITY 1.5 MG/0.5ML SOLUTION PEN-INJECTOR DIRECTED SUBCUTANEOUS ONCE A WEEK, NOTES: 11/26/20 TAKING DULOXETINE HCL 60 MG CAPSULE DELAYED RELEASE PARTICLES 1 CAPSULE ORALLY DAILY, NOTES: 11/29/20 PM TAKING GABAPENTIN 300 MG CAPSULE 1 CAPSULE ORALLY 3X DAILY, NOTES: 0500 TAKING OXYCODONE-ACETAMINOPHEN 10-325 MG TABLET 1 TABLET NEEDED ORALLY DAILY MDD1 #30 TABS SHOULD LAST 30 DAYS, NOTES: 11/29/20 PM TAKING TYLENOL 325 MG TABLET 2 TABLETS NEEDED ORALLY EVERY 4 HRS, NOTES: 0700 UNKNOWN CHLORTHALIDONE 25 MG TABLET 1 TABLET IN THE MORNING WITH FOOD ORALLY ONCE A DAY UNKNOWN NAPROXEN SODIUM 220 MG TABLET 1 TABLET WITH FOOD OR MILK NEEDED ORALLY EVERY 12 HRS UNKNOWN LOSARTAN POTASSIUM 100 MG TABLET 1 TABLET ORALLY ONCE A DAY UNKNOWN GABAPENTIN 600 MG TABLET 1 TABLET ORALLY ONCE A DAY UNKNOWN ESCITALOPRAM OXALATE 20 MG TABLET 1 TABLET ORALLY ONCE A DAY MEDICATION LIST REVIEWED AND RECONCILED WITH THE PATIENT PAST MEDICAL HISTORY ARTHRITIS LOW BACK STRAIN TYPE 2 DIABETES MELLITUS ESSENTIAL HYPERTENSION PURE HYPERCHOLESTEROLEMIA ALLERGIES NKDA SOCIAL HISTORY GENERAL: TOBACCO USE ARE YOU A:CURRENT SMOKER ARE YOU INTERESTED IN QUITTING?NOT READY TO QUIT COUNSELED THE PATIENT ON SMOKING EFFECTS, EDUCATION [id number]/2021 PATIENT COUNSELED ON THE DANGERS OF TOBACCO USE AND URGED TO QUIT:09/30/2020 VAPORNO E-CIGARETTENO LATEX QUESTIONNAIRE LATEX ALLERGY : HAVE YOU EVER DEVELOPED ANY TYPE OF REACTION AFTER HANDLING LATEX PRODUCTS SUCH RUBBER GLOVES, CONDOMS, DIAPHRAGMS, BALLOONS, SOCKS, OR UNDERWEAR?NO LATEX ALLERGY : HAVE YOU EVER DEVELOPED ANY TYPE OF REACTION DURING OR AFTER DENTAL APPOINTMENT, VAGINAL/RECTAL EXAMINATION, SURGICAL PROCEDURE, OR ANY OTHER EXPOSURE?NO LATEX RISK : HAVE YOU EVER HAD ANY DIFFICULTY BREATHING OR HIVES AFTER EATING OR HANDLING ANY FRUITS, OR VEGETABLES; SUCH KIWI, BANANAS, STONE FRUITS, OR CHESTNUTSNO LATEX RISK : DO YOU HAVE A PREVIOUS PERSONAL HISTORY OF MORE THAN NINE SURGERIES, SPINA BIFIDA, OR REPEATED CATHERIZATIONS? NO LATEX RISK : ARE YOU FREQUENTLY EXPOSED TO LATEX PRODUCTS IN YOUR OCCUPATION?NO DATE ASKED : 11/29/2020 ALCOHOL USE: YES ONCE IN A GREAT GREAT WHILE.. RECREATIONAL DRUG USE DRUG USE?NO LANGUAGE LANGUAGES SPOKEN:MALTESE EDUCATION LEVEL OF EDUCATION:FINISHED HIGH SCHOOL LEARNING BARRIERS / SPECIAL NEEDS CHANGE FROM LAST VISIT?NO BARRIERS TO LEARNING?NO HEARING IMPAIRED?NO VISION IMPAIRED?YES :CORRECTIVE LENSES COGNITIVELY IMPAIRED?NO READINESS TO LEARN?YES LEARNING PREFERENCES?NO LEARNING CAPABILITIES PRESENT?YES EMOTIONAL BARRIERS?NO SPECIAL DEVICES?NO WAFER MOUNTER NEEDED?NO DOMESTIC VIOLENCE DO YOU FEEL SAFE IN YOUR ENVIRONMENT?YES OCCUPATION: [employer]. MARITAL STATUS: . VITAL SIGNS WT 236.8 LBS, HT 6'0, BMI 32.11 INDEX, BP 140/88 MM HG, HR 61 /MIN, RR 18 /MIN, TEMP 98.2 F, OXYGEN SAT % 97%, BLOOD GLUCOSE LEVEL 108, SAFE IN ENV? (Y/N) YES, NA INITIALS AW 1222, REVIEWED BY: Eugenio CISNEROS RN. EXAMINATION GENERAL EXAMINATION: A HISTORY AND PHYSICAL EXAM ON THE PATIENT WAS DONE ON 11/25/2020(DATE OF ORIGINAL ASSESSMENT) IN PREPARATION OF SURGERY/PROCEDURE. I HAVE NOW REASSESSED THIS PATIENT'S HEALTH STATUS AND PERFORMED AN UPDATED EXAM TODAY. ALL CHANGES IN THE PATIENT'S HISTORY, PHYSICAL EXAM, PRE-EXISTING CONDITONS, AND INDICATIONS/CONTRAINDICATIONS TO THE PLANNED PROCEDURE AND ANESTHESIA ARE DOCUMENTED AND EVALUATED BELOW. I ATTEST TO THE ADEQUACY AND APPROPRIATENESS OF MY ASSESSMENT, AND CONFIRM THE NECESSITY FOR THE PLANNED PROCEDURE. THE PATIENT IS ALERT, ORIENTED TIMES THREE AND COOPERATIVE. LUNGS ARE CLEAR TO AUSCULTATION. HEART SHOWS REGULAR RHYTHM, NO MURMURS AND NO GALLOPS. ASA CLASS-II AIRWAY CLASS-II. ASSESSMENTS LUMBAR POST-LAMINECTOMY SYNDROME - M96.1 (PRIMARY) TREATMENT LUMBAR POST-LAMINECTOMY SYNDROME [facility] FLUORO GUIDE SPINE INJECTION (PAIN)[id number] MEDICATION: PAIN FENTANYL CITRATE 50MCG IV WINSOME PEMBERTON 11/30/2020 1:56:55 PM > VERIFIED BY WINSOME CURTIS 11/30/2020 2:02:33 PM > SECOND DOSE ORDERED, VERIFIED BY DEON HAGER 11/30/2020 2:25:41 PM > VERIFIED @1330 MICHAELA SAMUEL 11/30/2020 2:27:16 PM > FIRST DOSE ADMINISTERED @ 1359, SECOND DOSE ADMINISTERED @ 1402 FOR A TOTAL OF 100 MCG COMPLETION OF PROCEDURAL VISIT WHEN MEETS CRITERIADEON SILVA 11/30/2020 3:04:01 PM > CRITERIA MET @1459 MEDICATION: PAIN FENTANYL CITRATE 25MCG IVDILERONNELL MARTIISTAL 11/30/2020 2:12:02 PM > ORDER CANCELED DEON SILVA 11/30/2020 2:23:43 PM > VERIFIED @ 1330 MED: PAIN VERSED 1MG IV MIDAZOLAMRICARDO,DEON 11/30/2020 2:24:17 PM > VERIFIED @1330 JIMMIEMICHAELA 11/30/2020 2:27:39 PM > ADMINISTERED @ 1359 OXYGEN AT 2 LITERS PER NASAL CANNULARICARDO,DEON 11/30/2020 2:28:17 PM > ON @ 1340 OFF @1420 [facility] 11/30/2020 1:09:12 PM > KVO IN RWR DEON SILVA 11/30/2020 1:14:47 PM > 20G IV ACCESS OBTAINED IN RWR @ 1250. PATIENT TOLERATED WELL. TBRADLEYRN MEDICATION: PAIN ZOFRAN 4MG/2ML IV ONDANSETRONSYHUBERT KNAPP 11/30/2020 12:52:05 PM > VERIFIED. RICARDODEON 11/30/2020 1:11:37 PM > ADMINISTERED MED: PAIN BENADRYL 25MG IV DIPHENHYDRAMINESALLYHUBERT L 11/30/2020 12:52:19 PM > VERIFIED. RICARDODEON 11/30/2020 1:12:12 PM > ADMINSTERED NOTES: PATIENT STATES THAT HE IS AWARE OF HIS ELEVATED BP, ALSO THAT THIS IS NOT NEW. STATES THAT HE WAS ON CONTROL MEDICATIONS BUT IS NOT TAKING THEM ANY LONGER. PATIENT IS ADVISED TO CONSULT WITH HIS PCP REGARDING HIS BLOOD PRESSURE. OTHERS NOTES: 11/29/20 RAMANDEEP CHAPA FRETTED INSTRUMENT REPAIRER. PROCEDURES PAIN NURSING RECORD PROCEDURE IN ROOM 1340, PHYSICIAN IN ROOM 1352, START 1401, FINISH 1410, PHYSICIAN OUT OF ROOM 1411, OUT OF ROOM 1420, ECG NORMAL SINUS, PATIENT SHIELDED YES, SAFETY STRAP YES, PREP STACEY SAMUEL RN, DRESSING TEGADERM DR. ANTONIO LOC: IN ROOM 1340, PHYSICIAN IN ROOM 1352, START 1401, FINISH 1410, PHYSICIAN OUT OF ROOM 1411, OUT OF ROOM 1420, ECG NORMAL SINUS, PATIENT SHIELDED YES, SAFETY STRAP YES, PREP STACEY SAMUEL RN, DRESSING TEGADERM DR. ANTONIO RESP: 1. REGULAR, NO DYSPNEARICARDO TOM 11/30/2020 2:02:32 PM > COLOR: 1. PINK SKIN: 1. WARM, DRYRICARDO TOM 11/30/2020 2:03:00 PM > POSITION: 1. PRONERICARDO TOM 11/30/2020 2:03:07 PM > VITALS: 1345 -HR 57, 157/99, 97% R 14 TBRADLEYRN 1358 HR67,168/112, 99%, R14 TBRADLEYRN 1400 -HR 60, 160/93, 97% R14 TBRADLEYRN 1405- HR58, 181/120, 96%, R14 TBRADLEYRN 1410- HR60, 169/114, 95%, R14 TBRADLEYRN 1415- HR 63, 156/104, 92%, R12 TBRADLEYRN 1420- HR 66, 165/104, 93%, R12 TBRADLEYRN 1425- HR 60, 156/104, 92% R12 TBRADLEYRN 1430- HR 68, 165/104, 95%, R14 TBRADLEYRN EXIT VITALS HR 68, 151/94, 97% R14 @1453TBRADLEYRN NOTES Shaun SILVA RN COMPLETION OF PROCEDURE APPOINTMENT: POST PAIN 0, DRESSING SITE DRY AND INTACT, IV DISCONTINUED, SITE CLEAR, CATHETER INTACT, GAIT WHEELCHAIR, TEACHING COMPLETED, PATIENT ACKNOWLEDGES UNDERSTANDING YES, PROCEDURE APPOINTMENT COMPLETED AT 1459 PN CAUDAL EPIDURALS PRE PROCEDURE DIAGNOSIS LUMBAR POST LAMINECTOMY PAIN SYNDROME POST PROCEDURE DIAGNOSIS LUMBAR POST LAMINECTOMY PAIN SYNDROME PROCEDURE CAUDAL EPIDURAL STEROID INJECTION SURGEON DR. YAN ANTONIO AIRCRAFT SHEET METAL MECHANIC NONE ANESTHESIA LOCAL WITH IV SEDATION PRE PROCEDURE NOTE THE PATIENT HAS HISTORY OF CHRONIC LOW BACK PAIN. I EVALUATED THE PATIENT AND REVIEWED THE CHART. I WENT OVER THE RISKS, ALTERNATIVES, AND BENEFITS ASSOCIATED WITH THIS PROCEDURE. THE PATIENT WOULD LIKE TO PROCEED AND GIVE CONSENT TO PERFORMED THE PROCEDURE. THE PATEINT WOULD LIKE TO MOVE FORWARD WITH IV SEDATION DUE TO THE ANXIETY AND DISCOMFORT ASSOCIATED WITH THE PROCEDURE. THE PATIENT DENIES UNEXPLAINABLE WEIGHT LOSS, FEVER, CHILLS, OR NEW CHANGES IN URINARY OR BOWEL CONTROL. THE PATIENT IS COVID-19 NEGATIVE DESCRIPTION OF PROCEDURE THE PATIENT WAS BROUGHT TO THE PROCEDURE ROOM AND PLACED IN THE PRONE POSITION. THE LUMBOSACRAL AREA WAS CLEANED WITH BETADINE SOLUTION AND DRAPED ASEPTICALLY. THE PROCEDURE WAS DONE UNDER STERILE CONDITIONS. A TIMEOUT WAS PERFORMED WHERE THE CONSENTED SITE WAS VERIFIED WITH EVERYONE IN THE ROOM. UNDER FLUOROSCOPIC GUIDANCE, THE TARGET POINT WAS SELECTED AT THE EPIDURAL SPACE BELOW THE SACROCOCCYGEAL LIGAMENT. I CONFIRMED AGAIN THE SITE OF TARGET. LIDOCAINE 0.5% WAS USE TO NUMB THE SKIN AND THE SUBCUTANEOUS TISSUE BELOW IT. EPIMED NEEDLE, 16-GAUGE, WAS ADVANCED UNDER FLUOROSCOPIC GUIDANCE AND FOLLOWING PATIENT FEEDBACK UNTIL THE EPIDURAL SPACE WAS REACHED BY THE LOSS OF RESISTANCE TECHNIQUE. A 19-GAUGE EPIMED CATHETER WAS ADVANCED THROUGH THE NEEDLE AND THEN ADVANCED TOWARD THE INTERLAMINAR LEVEL OF LEFT L5-S1 UNDER FLUOROSCOPY AND FOLLOWING PATIENT FEEDBACK. ISOVUE M DYE 30%, 0.25 ML, WAS INJECTED SHOWING ADEQUATE SPREAD OF THE DYE. THEN, A SOLUTION OF 6 ML OF NORMAL SALINE WITH DEPO-MEDROL 40 MG WAS INJECTED SLOWLY FOLLOWING THE PATIENT FEEDBACK. THERE WAS NO EVIDENCE OF BLOOD, PARESTHESIA OR CEREBROSPINAL FLUID DURING THE PROCEDURE. THE PATIENT WAS SENT TO THE RECOVERY ROOM. THE PATIENT WAS MOVING THE EXTREMITIES AND DOING WELL. THERE WAS NO COMPLICATION DURING THE PROCEDURE. ESTIMATED BLOOD LOSS LESS THAN 5 ML. FLUOROSCOPY TIME WAS 15 SECONDS. THE PATIENT RECEIVED VERSED 1 MG AND FENTANYL 100 MCG AND BENADRYL 25 MG IV IN DIVIDED DOSES. FACE TO FACE START TIME: 1359 FACE TO FACE END TIME: 1414 TOTAL FACE TO FACE TIME: 15 MINUTES. POST PROCEDURE NOTE DEPENDING ON THE RESULTS, CONSIDER A SPINAL COLUMN STIMULATOR. THE PATIENT WILL BE SEEN IN A FOLLOW UP IN THE NEXT FEW WEEKS. I AM LOOKING FOR LONG LASTING RELIEF FOR THE PATIENT WITH THIS INTERVENTION. INSTRUCTIONS WERE GIVEN, QUESTIONS WERE ANSWERED, AND THE PATIENT EXPRESSED UNDERSTANDING AND AGREES WITH THE PLAN. I, WINSOME PEMBERTON, DOCUMENTED THE ABOVE INFORMATION ACTING A SCRIBE FOR DR. ANTONIO. I HAVE REVIEWED THE ABOVE DOCUMENT, WRITTEN BY WINSOME PEMBERTON, END PACKER, AND I VERIFY THAT IT IS ACCURATE PROCEDURE CODES 74488 LUMBAR/SACRAL W/ IMAGING [id number] MOD SED SAME PHYS/QHP 5/>YRS DISPOSITION & COMMUNICATION FOLLOW UP FOLLOW UP WITH CLIENT SERVICES ASSISTANT (REASON: POST CAUDAL EPIDURAL STEROID INJECTION) ELECTRONICALLY SIGNED BY YAN ANTONIO MD, MD ON 12/02/2020 AT 09:58 AM EDT DISCLAIMER : THIS IS A VISIT SUMMARY EXTRACTED FROM THE [employer] CHART. IT IS NOT A COPY OF THE [employer] PROGRESS NOTE. CIRILO
== END ==
LOC: M PAIN 11:40
PROVIDERS: ATTEND Anesthesiology
DX: M96.1 Postlaminectomy syndrome, not elsewhere classified (principal); E11.9 Type 2 diabetes mellitus without complications; F17.200 Nicotine dependence, unspecified, uncomplicated; Z79.899 Other long term (current) drug therapy
CPT/HCPCS: 62323; 99152; J1030; J1200; J2250; J2405; J3010; Q9967

== ENCOUNTER → 2021-05-24 | Outpatient (CLI) | payer OTHER | LOC: M PAIN 14:00 | PROVIDERS: ATTEND Anesthesiology | DX: M96.1 Postlaminectomy syndrome, not elsewhere classified (principal); E11.9 Type 2 diabetes mellitus without complications; F17.200 Nicotine dependence, unspecified, uncomplicated; E66.01 Morbid (severe) obesity due to excess calories; Z68.42 Body mass index [BMI] 45.0-49.9, adult; Z79.899 Other long term (current) drug therapy ==